=== PATIENT | male | born 1980 | race African-American/Black ===

== ENCOUNTER 2016-10-17 21:02 | Emergency (ER) | payer MEDICAID ==
[~2016-10-17] VITALS: Ht 180.3 cm; Wt 85.3 kg
[2016-10-18 01:31] VITALS: BP 108/79
[2016-10-18] MEDS ORDERED: IBUPROFEN 600 MG TAB PO ONE (01:45)
== END 2016-10-18 01:45 | disposition home or self-care (01) ==
LOC: ER 21:02
DX: S86.911A Strain of unspecified muscle(s) and tendon(s) at lower leg level, right leg, initial encounter (principal); F17.210 Nicotine dependence, cigarettes, uncomplicated; F15.10 Other stimulant abuse, uncomplicated; X50.0XXA Overexertion from strenuous movement or load, initial encounter; Y93.89 Activity, other specified; Y99.8 Other external cause status; Y92.89 Other specified places as the place of occurrence of the external cause
CPT/HCPCS: 29505; 73562

== ENCOUNTER 2017-01-16 00:11 | Emergency (ER) | payer MEDICAID ==
[~2017-01-16] VITALS: Ht 180.3 cm; Wt 74.8 kg
[2017-01-16 01:34] LABS: Basophils # (auto) 0.1 uL; Basophils % (auto) 0.8 % (0.0-2.0); CONDITION Y; DEFINITIVE SEE PRINTOUT; Eosinophils # (auto) 0.1 uL; Eosinophils % (auto) 0.8 % (0.0-7.0); Hematocrit 47.1 % (41.0-53.0); Hemoglobin 15.4 g/dL (13.5-17.5); Lymphocytes # (auto) 2.1 uL; Mean Corpuscular Hemoglobin 25.2 pg (28.0-32.0); Mean Corpuscular Hgb Conc. 32.8 g/dL (32.0-36.0); Mean Corpuscular Volume 76.9 fL (80.0-100.0); Mean Platelet Volume 8.1 fL (7.4-10.4); Monocytes # (auto) 0.7 uL; Monocytes % (auto) 7.2 % (0.0-12.0); Neutrophils # (auto) 7.3 uL; Neutrophils % (auto) 71.2 % (37.0-80.0); Platelet Count (auto) 335 10^3/uL (140-450); Red Cell Distribution Width 15.4 % (11.6-16.0); White Blood Cell 10.3 10^3/uL (4.4-10.8)
[2017-01-16 01:53] LABS: Albumin 4.2 g/dL (3.4-5.0); BUN/Creatinine Ratio 10.1; Calcium 8.8 mg/dL (8.5-10.1); Potassium 3.9 mmol/L (3.5-5.1)
[2017-01-16 02:02] LABS: Bilirubin, Total 0.5 mg/dL (0.2-1.0); Total Protein 7.5 g/dL (6.4-8.2)
[2017-01-16 06:17] VITALS: BP 126/75
[2017-01-16] MEDS ORDERED: KETOROLAC TROMETH 30 MG/ML 1ML VIAL IM ONE (06:30)
[2017-01-16] MEDS ORDERED: KETOROLAC TROMETH 30 MG/ML 1ML VIAL IV ONE (06:30)
== END 2017-01-16 07:09 | disposition home or self-care (01) ==
LOC: ER 00:13
DX: K08.89 Other specified disorders of teeth and supporting structures (principal); F17.210 Nicotine dependence, cigarettes, uncomplicated; F15.10 Other stimulant abuse, uncomplicated
CPT/HCPCS: 36415; 70360; 80053; 85025; 96372; 99285; J1885

== ENCOUNTER 2017-04-12 23:25 | Emergency (ER) | payer MEDICAID ==
[~2017-04-12] VITALS: Ht 180.3 cm; Wt 74.8 kg
[2017-04-13 02:44] VITALS: BP 112/82
== END 2017-04-13 02:47 | disposition home or self-care (01) ==
LOC: ER 23:34
DX: H10.9 Unspecified conjunctivitis (principal); F17.210 Nicotine dependence, cigarettes, uncomplicated; F15.10 Other stimulant abuse, uncomplicated; Z90.89 Acquired absence of other organs

== ENCOUNTER 2017-05-22 03:38 | Emergency (ER) | payer MEDICAID ==
[~2017-05-22] VITALS: Ht 180.3 cm; Wt 74.8 kg
[2017-05-22 04:00] VITALS: BP 125/73
== END 2017-05-22 05:45 | disposition left against medical advice (07) ==
LOC: ER 03:42
DX: M79.645 Pain in left finger(s) (principal); Z53.21 Procedure and treatment not carried out due to patient leaving prior to being seen by health care provider
CPT/HCPCS: 73140

== ENCOUNTER 2017-06-22 02:21 | Emergency (ER) | payer MEDICAID ==
[~2017-06-22] VITALS: Ht 180.3 cm; Wt 72.6 kg
[2017-06-22 02:46] VITALS: BP 124/76
[2017-06-22 03:15] LABS: Basophils # (auto) 0.1 uL; Eosinophils # (auto) 0.1 uL; Mean Corpuscular Volume 77.5 fL (80.0-100.0); Mean Platelet Volume 7.4 fL (6.9-10.8); Monocytes # (auto) 0.8 uL; Red Cell Distribution Width 14.1 % (11.8-14.3)
[2017-06-22 03:17] LABS: Eosinophils % (auto) 0.6 % (0.0-7.0); Hematocrit 40.6 % (41.0-53.0); Hemoglobin 13.6 g/dL (13.5-17.5); Lymphocytes # (auto) 1.8 uL; Lymphocytes % (auto) 16.3 % (10.0-50.0); Mean Corpuscular Hgb Conc. 33.6 g/dL (32.0-36.0); Monocytes % (auto) 7.4 % (0.0-12.0); Neutrophils # (auto) 8.3 uL; Neutrophils % (auto) 74.7 % (37.0-80.0); Nucleated Red Blood Cells % 0.1 %; Platelet Count (auto) 283 10^3/uL (140-450); White Blood Cell 11.1 10^3/uL (4.4-10.8)
[2017-06-22 03:44] LABS: Albumin 4.1 g/dL (3.4-5.0); BUN/Creatinine Ratio 16.5; Bilirubin, Total 0.4 mg/dL (0.2-1.0); Calcium 9.2 mg/dL (8.5-10.1); Potassium 3.8 mmol/L (3.5-5.1); Total Protein 7.2 g/dL (6.4-8.2)
== END 2017-06-22 08:05 | disposition left against medical advice (07) ==
LOC: ER 02:24
DX: R06.02 Shortness of breath (principal); F12.10 Cannabis abuse, uncomplicated; Z53.21 Procedure and treatment not carried out due to patient leaving prior to being seen by health care provider
CPT/HCPCS: 36415; 80053; 85025

== ENCOUNTER 2017-10-04 06:42 | Emergency (ER) | payer MEDICAID ==
[~2017-10-04] VITALS: Ht 180.3 cm; Wt 74.8 kg
[2017-10-04 07:29] VITALS: BP 108/73
== END 2017-10-04 07:54 | disposition home or self-care (01) ==
LOC: ER 06:42
DX: S30.0XXA Contusion of lower back and pelvis, initial encounter (principal); F17.210 Nicotine dependence, cigarettes, uncomplicated; W50.3XXA Accidental bite by another person, initial encounter; Y93.89 Activity, other specified; Y92.89 Other specified places as the place of occurrence of the external cause; Y99.8 Other external cause status

== ENCOUNTER 2018-08-11 02:05 | Emergency (ER) | payer MEDICAID ==
[~2018-08-11] VITALS: Ht 180.3 cm; Wt 77.1 kg
[2018-08-11 02:12] VITALS: BP 136/75
== END 2018-08-11 05:08 | disposition home or self-care (01) ==
LOC: ER 02:06
DX: S09.90XA Unspecified injury of head, initial encounter (principal); M62.830 Muscle spasm of back; F17.210 Nicotine dependence, cigarettes, uncomplicated; W22.8XXA Striking against or struck by other objects, initial encounter; Y93.89 Activity, other specified; Y92.89 Other specified places as the place of occurrence of the external cause; Y99.8 Other external cause status
CPT/HCPCS: 70450; 72125

== ENCOUNTER 2018-08-16 03:17 | Emergency (ER) | payer MEDICAID ==
[~2018-08-16] VITALS: Ht 180.3 cm; Wt 77.1 kg
[2018-08-16 04:08] VITALS: BP 121/75
[2018-08-16] MEDS ORDERED: METHOCARBAMOL 500 MG TAB PO ONE (06:45)
== END 2018-08-16 08:24 | disposition home or self-care (01) ==
LOC: ER 03:17
DX: S13.9XXA Sprain of joints and ligaments of unspecified parts of neck, initial encounter (principal); F17.210 Nicotine dependence, cigarettes, uncomplicated; F15.10 Other stimulant abuse, uncomplicated; V87.8XXA Person injured in other specified noncollision transport accidents involving motor vehicle (traffic), initial encounter; Y93.55 Activity, bike riding; Y92.488 Other paved roadways as the place of occurrence of the external cause; Y99.8 Other external cause status
CPT/HCPCS: 72125

== ENCOUNTER 2018-08-26 04:54 | Emergency (ER) | payer MEDICAID ==
[~2018-08-26] VITALS: Ht 180.3 cm; Wt 77.1 kg
[2018-08-26 06:30] VITALS: BP 120/62
== END 2018-08-26 06:45 | disposition home or self-care (01) ==
LOC: ER 04:54
DX: R51 Headache (principal); F17.210 Nicotine dependence, cigarettes, uncomplicated; F12.90 Cannabis use, unspecified, uncomplicated; F15.90 Other stimulant use, unspecified, uncomplicated
CPT/HCPCS: 70450

== ENCOUNTER 2018-09-11 05:30 | Emergency (ER) | payer MEDICAID ==
[~2018-09-11] VITALS: Ht 180.3 cm; Wt 77.1 kg
[2018-09-11 06:31] VITALS: BP 131/87
[2018-09-11] MEDS ORDERED: IBUPROFEN 600 MG TAB PO ONE (07:45)
== END 2018-09-11 07:52 | disposition home or self-care (01) ==
LOC: ER 05:30
DX: S81.832A Puncture wound without foreign body, left lower leg, initial encounter (principal); F17.210 Nicotine dependence, cigarettes, uncomplicated; F12.90 Cannabis use, unspecified, uncomplicated; F15.90 Other stimulant use, unspecified, uncomplicated; W20.8XXA Other cause of strike by thrown, projected or falling object, initial encounter; Y93.89 Activity, other specified; Y99.8 Other external cause status; Y92.89 Other specified places as the place of occurrence of the external cause

== ENCOUNTER 2018-09-13 07:42 | Emergency (ER) | payer MEDICAID ==
[~2018-09-13] VITALS: Ht 180.3 cm; Wt 77.1 kg
[2018-09-13 08:17] VITALS: BP 113/65
== END 2018-09-13 10:00 | disposition left against medical advice (07) ==
LOC: ER 07:48

== ENCOUNTER 2018-09-20 03:45 | Emergency (ER) | payer MEDICAID ==
[~2018-09-20] VITALS: Ht 167.6 cm; Wt 81.6 kg
[2018-09-20 07:44] VITALS: BP 115/83
== END 2018-09-20 09:43 | disposition home or self-care (01) ==
LOC: ER 03:45
DX: S80.922D Unspecified superficial injury of left lower leg, subsequent encounter (principal); F17.210 Nicotine dependence, cigarettes, uncomplicated; F12.10 Cannabis abuse, uncomplicated; F15.10 Other stimulant abuse, uncomplicated; X58.XXXD Exposure to other specified factors, subsequent encounter

== ENCOUNTER 2018-10-01 04:37 | Emergency (ER) | payer MEDICAID ==
[~2018-10-01] VITALS: Ht 180.3 cm; Wt 74.8 kg
[2018-10-01] MEDS ORDERED: methylPREDNISolone SOD SUCC 125 MG/2 ML VL IM ONE (05:30)
[2018-10-01] MEDS ORDERED: TETANUS-DIPTH-ACEL PERTUSSIS 0.5ML SYRG IM ONE (05:30)
[2018-10-01] MEDS ORDERED: cefTRIAXone SOD 1,000 MG VL IM ONE (05:30)
[2018-10-01 06:31] VITALS: BP 126/77
== END 2018-10-01 06:37 | disposition home or self-care (01) ==
LOC: ER 04:37
DX: S10.91XA Abrasion of unspecified part of neck, initial encounter (principal); T88.1XXA Other complications following immunization, not elsewhere classified, initial encounter; F17.210 Nicotine dependence, cigarettes, uncomplicated; F12.10 Cannabis abuse, uncomplicated; F15.10 Other stimulant abuse, uncomplicated; Y04.2XXA Assault by strike against or bumped into by another person, initial encounter; Y93.89 Activity, other specified; Y92.830 Public park as the place of occurrence of the external cause; Y99.8 Other external cause status
CPT/HCPCS: 90471; 90715; 96372; 99283; J0696; J2930

== ENCOUNTER 2018-11-01 02:29 | Emergency (ER) | payer MEDICAID ==
[~2018-11-01] VITALS: Ht 180.3 cm; Wt 49.9 kg
[2018-11-01 06:50] VITALS: BP 122/67
== END 2018-11-01 07:11 | disposition home or self-care (01) ==
LOC: ER 02:29
DX: S20.479A Other superficial bite of unspecified back wall of thorax, initial encounter (principal); F17.210 Nicotine dependence, cigarettes, uncomplicated; F12.90 Cannabis use, unspecified, uncomplicated; F15.90 Other stimulant use, unspecified, uncomplicated; W50.3XXA Accidental bite by another person, initial encounter; Y93.89 Activity, other specified; Y99.8 Other external cause status; Y92.89 Other specified places as the place of occurrence of the external cause

== ENCOUNTER 2018-12-21 05:37 | Emergency (ER) | payer MEDICAID ==
[~2018-12-21] VITALS: Ht 180.3 cm; Wt 79.4 kg
[2018-12-21 06:48] VITALS: BP 130/72
== END 2018-12-21 07:42 | disposition home or self-care (01) ==
LOC: ER 05:37
DX: R68.84 Jaw pain (principal); S01.81XD Laceration without foreign body of other part of head, subsequent encounter; F17.210 Nicotine dependence, cigarettes, uncomplicated; F12.10 Cannabis abuse, uncomplicated; F15.10 Other stimulant abuse, uncomplicated; X58.XXXD Exposure to other specified factors, subsequent encounter
CPT/HCPCS: 70110

== ENCOUNTER 2018-12-23 00:41 | Emergency (ER) | payer MEDICAID ==
[~2018-12-23] VITALS: Ht 180.3 cm; Wt 79.4 kg
[2018-12-23 00:49] VITALS: BP 127/77
== END 2018-12-23 02:53 | disposition left against medical advice (07) ==
LOC: ER 00:41
DX: S01.419D Laceration without foreign body of unspecified cheek and temporomandibular area, subsequent encounter (principal); Z53.21 Procedure and treatment not carried out due to patient leaving prior to being seen by health care provider; X58.XXXD Exposure to other specified factors, subsequent encounter

== ENCOUNTER 2019-01-05 00:24 | Emergency (ER) | payer MEDICAID ==
[~2019-01-05] VITALS: Ht 180.3 cm; Wt 77.1 kg
[2019-01-05 04:52] VITALS: BP 119/83
== END 2019-01-05 06:49 | disposition home or self-care (01) ==
LOC: ER 00:26
DX: L03.221 Cellulitis of neck (principal); F17.210 Nicotine dependence, cigarettes, uncomplicated; F12.10 Cannabis abuse, uncomplicated; F15.10 Other stimulant abuse, uncomplicated

== ENCOUNTER 2019-01-23 02:23 | Emergency (ER) | payer MEDICAID ==
[~2019-01-23] VITALS: Ht 180.3 cm; Wt 77.1 kg
[2019-01-23 02:37] VITALS: BP 114/78
[2019-01-23] MEDS ORDERED: BACLOFEN 10 MG TAB PO ONE (04:15)
[2019-01-23] MEDS ORDERED: ACETAMINOPHEN/CODEINE#3 (300/30mg) TAB PO ONE (04:15)
== END 2019-01-23 05:13 | disposition home or self-care (01) ==
LOC: ER 02:26
DX: S29.012A Strain of muscle and tendon of back wall of thorax, initial encounter (principal); M62.830 Muscle spasm of back; F17.210 Nicotine dependence, cigarettes, uncomplicated; F12.10 Cannabis abuse, uncomplicated; F15.10 Other stimulant abuse, uncomplicated; X50.0XXA Overexertion from strenuous movement or load, initial encounter; Y93.89 Activity, other specified; Y92.89 Other specified places as the place of occurrence of the external cause; Y99.8 Other external cause status

== ENCOUNTER 2019-02-17 04:50 | Emergency (ER) | payer MEDICAID ==
[~2019-02-17] VITALS: Ht 180.3 cm; Wt 77.1 kg
[2019-02-17 04:59] VITALS: BP 118/68
== END 2019-02-17 07:10 | disposition home or self-care (01) ==
LOC: ER 04:50
DX: H10.31 Unspecified acute conjunctivitis, right eye (principal); F17.210 Nicotine dependence, cigarettes, uncomplicated; F12.90 Cannabis use, unspecified, uncomplicated; F15.90 Other stimulant use, unspecified, uncomplicated

== ENCOUNTER 2019-06-23 01:16 | Emergency (ER) | payer MEDICAID ==
[~2019-06-23] VITALS: Ht 180.3 cm; Wt 72.6 kg
[2019-06-23 01:49] VITALS: BP 113/81
== END 2019-06-23 02:17 | disposition home or self-care (01) ==
LOC: ER 01:18
DX: J06.9 Acute upper respiratory infection, unspecified (principal); F17.210 Nicotine dependence, cigarettes, uncomplicated; F12.10 Cannabis abuse, uncomplicated; F15.10 Other stimulant abuse, uncomplicated
CPT/HCPCS: 71045

== ENCOUNTER → 2020-10-21 | Emergency (ER) | payer MEDICAID ==
[~2020-10-21] VITALS: Ht 180.3 cm; Wt 81.6 kg
[2020-10-21 23:24] VITALS: BP 167/81
== END | disposition left against medical advice (07) ==
LOC: ER 23:22
DX: R51.9 Headache, unspecified (principal); Z53.21 Procedure and treatment not carried out due to patient leaving prior to being seen by health care provider
CPT/HCPCS: 70450

== ENCOUNTER 2020-12-01 09:51 | Emergency (ER) | payer MEDICAID ==
[~2020-12-01] VITALS: Ht 180.3 cm; Wt 77.1 kg
[2020-12-01] MEDS ORDERED: cefTRIAXone SOD 1,000 MG VL IM ONE (10:45)
[2020-12-01 10:55] VITALS: BP 112/49
== END 2020-12-01 11:38 | disposition home or self-care (01) ==
LOC: ER 09:51
DX: L01.02 Bockhart's impetigo (principal); F17.210 Nicotine dependence, cigarettes, uncomplicated; F12.10 Cannabis abuse, uncomplicated; F15.10 Other stimulant abuse, uncomplicated
CPT/HCPCS: 96372; 99283; J0696

== ENCOUNTER 2020-12-08 21:12 | Emergency (ER) | payer MEDICAID ==
[~2020-12-08] VITALS: Ht 180.3 cm; Wt 74.8 kg
[2020-12-09 00:36] VITALS: BP 142/99
[2020-12-09] MEDS ORDERED: KETOROLAC TROMETH 60MG/2ML VIAL IM ONE (01:00)
== END 2020-12-09 01:34 | disposition home or self-care (01) ==
LOC: ER 21:12
DX: S62.614A Displaced fracture of proximal phalanx of right ring finger, initial encounter for closed fracture (principal); F17.210 Nicotine dependence, cigarettes, uncomplicated; Z90.89 Acquired absence of other organs; W22.8XXA Striking against or struck by other objects, initial encounter; Y93.89 Activity, other specified; Y92.89 Other specified places as the place of occurrence of the external cause; Y99.8 Other external cause status
CPT/HCPCS: 73130; 96372; 99283; J1885

== ENCOUNTER 2021-02-14 03:23 | Emergency (ER) | payer MEDICAID ==
[~2021-02-14] VITALS: Ht 180.3 cm; Wt 72.6 kg
[2021-02-14 06:47] VITALS: BP 113/68
== END 2021-02-14 06:53 | disposition home or self-care (01) ==
LOC: ER 03:23
DX: L01.02 Bockhart's impetigo (principal); L02.91 Cutaneous abscess, unspecified; F17.210 Nicotine dependence, cigarettes, uncomplicated; Z76.0 Encounter for issue of repeat prescription

== ENCOUNTER 2021-02-21 00:49 | Emergency (ER) | payer MEDICAID ==
[~2021-02-21] VITALS: Ht 180.3 cm; Wt 77.1 kg
[2021-02-21 00:50] VITALS: BP 108/68
[2021-02-21] MEDS ORDERED: ACETAMINOPHEN 500 MG TAB PO ONE (04:00)
[2021-02-21] MEDS ORDERED: IBUPROFEN 800 MG TAB PO ONE (04:00)
== END 2021-02-21 04:40 | disposition home or self-care (01) ==
LOC: ER 00:54
DX: S93.601A Unspecified sprain of right foot, initial encounter (principal); F17.210 Nicotine dependence, cigarettes, uncomplicated; Z90.89 Acquired absence of other organs; Y04.2XXA Assault by strike against or bumped into by another person, initial encounter; Y93.89 Activity, other specified; Y92.89 Other specified places as the place of occurrence of the external cause; Y99.8 Other external cause status
CPT/HCPCS: 73620

== ENCOUNTER 2021-03-02 00:41 | Emergency (ER) | payer MEDICAID ==
[~2021-03-02] VITALS: Ht 180.3 cm; Wt 77.1 kg
[2021-03-02 07:07] VITALS: BP 119/84
== END 2021-03-02 07:10 | disposition home or self-care (01) ==
LOC: ER 00:41
DX: S93.601A Unspecified sprain of right foot, initial encounter (principal); F17.210 Nicotine dependence, cigarettes, uncomplicated; Z76.0 Encounter for issue of repeat prescription; Z90.89 Acquired absence of other organs; X58.XXXA Exposure to other specified factors, initial encounter; Y93.89 Activity, other specified; Y92.89 Other specified places as the place of occurrence of the external cause; Y99.8 Other external cause status

== ENCOUNTER → 2021-03-08 | Emergency (ER) | payer MEDICAID ==
[~2021-03-08] VITALS: Ht 180.3 cm; Wt 72.6 kg
[2021-03-08 03:39] VITALS: BP 129/85
[2021-03-08 04:12] LABS: Basophils # (auto) 0.1 10 ^3/uL (0-0.2); Eosinophils # (auto) 0.1 10 ^3/uL (0-0.8); Lymphocytes # (auto) 2.6 10 ^3/uL (0.4-5.4); Neutrophils # (auto) 4.6 10 ^3/uL (1.6-8.6); White Blood Cell 7.8 10^3/uL (4.4-10.8)
[2021-03-08 04:14] LABS: Basophils % (auto) 1.3 % (0.0-2.0); Eosinophils % (auto) 1.3 % (0.0-7.0); Hematocrit 37.5 % (41.0-53.0); Hemoglobin 12.6 g/dL (13.5-17.5); Lymphocytes % (auto) 33.6 % (10.0-50.0); Mean Corpuscular Hemoglobin 25.6 pg (28.0-32.0); Mean Corpuscular Hgb Conc. 33.7 g/dL (32.0-36.0); Mean Corpuscular Volume 75.9 fL (80.0-100.0); Monocytes # (auto) 0.4 10 ^3/uL (0-1.3); Monocytes % (auto) 5.1 % (0.0-12.0); Neutrophils % (auto) 58.7 % (37.0-80.0); Red Blood Cells 4.95 10^6/uL (4.5-5.90); Red Cell Distribution Width 14.6 % (11.8-14.3)
[2021-03-08 04:33] LABS: Alanine Aminotransferase 25 U/L (16-61); Albumin 3.9 g/dL (3.4-5.0); Anion Gap 6 (5-15); Aspartate Aminotransferase 22 U/L (15-37); BUN/Creatinine Ratio 9.1; Blood Urea Nitrogen 11 mg/dL (7-18); Calcium 8.5 mg/dL (8.5-10.1); Carbon Dioxide 28 mmol/L (21-32); Chloride 105 mmol/L (98-107); GFR African American 86 mL/min; GFR Non-African American 71 mL/min; Glucose 99 mg/dL (74-106); Magnesium 2.3 mg/dL (1.6-2.6); Potassium 3.3 mmol/L (3.5-5.1); Sodium 139 mmol/L (136-145)
[2021-03-08 04:37] LABS: Alkaline Phosphatase 79 U/L (45-117); Bilirubin, Total 0.4 mg/dL (0.2-1.0); Total Protein 6.9 g/dL (6.4-8.2)
== END | disposition home or self-care (01) ==
LOC: ER 03:05
DX: S93.601A Unspecified sprain of right foot, initial encounter (principal); R07.89 Other chest pain; F41.9 Anxiety disorder, unspecified; F17.210 Nicotine dependence, cigarettes, uncomplicated; F12.10 Cannabis abuse, uncomplicated; F15.10 Other stimulant abuse, uncomplicated; X58.XXXA Exposure to other specified factors, initial encounter; Y93.89 Activity, other specified; Y92.89 Other specified places as the place of occurrence of the external cause; Y99.8 Other external cause status
CPT/HCPCS: 36415; 73630; 80053; 83735; 84484; 85025; 93005

== ENCOUNTER 2021-03-23 21:08 | Emergency (ER) | payer MEDICAID ==
[~2021-03-23] VITALS: Ht 180.3 cm; Wt 81.2 kg
[2021-03-24] MEDS ORDERED: IBUPROFEN 800 MG TAB PO ONE (07:15)
[2021-03-24 07:30] VITALS: BP 118/83
== END 2021-03-24 07:34 | disposition home or self-care (01) ==
LOC: ER 21:08
DX: S60.041A Contusion of right ring finger without damage to nail, initial encounter (principal); M19.041 Primary osteoarthritis, right hand; F17.210 Nicotine dependence, cigarettes, uncomplicated; Z90.89 Acquired absence of other organs; W22.8XXA Striking against or struck by other objects, initial encounter; Y93.89 Activity, other specified; Y92.89 Other specified places as the place of occurrence of the external cause; Y99.8 Other external cause status
CPT/HCPCS: 73120

== ENCOUNTER 2021-03-26 00:30 | Emergency (ER) | payer MEDICAID ==
[~2021-03-26] VITALS: Ht 180.3 cm; Wt 75.7 kg
[2021-03-26 02:16] LABS: Basophils # (auto) 0.1 10 ^3/uL (0-0.2); Eosinophils # (auto) 0 10 ^3/uL (0-0.8); Eosinophils % (auto) 0.4 % (0.0-7.0); Monocytes # (auto) 0.5 10 ^3/uL (0-1.3); Neutrophils # (auto) 5.7 10 ^3/uL (1.6-8.6); Nucleated Red Blood Cells % 0.1 %; White Blood Cell 8.4 10^3/uL (4.4-10.8)
[2021-03-26 02:17] LABS: Hematocrit 38.3 % (41.0-53.0); Hemoglobin 12.9 g/dL (13.5-17.5); Lymphocytes # (auto) 2.1 10 ^3/uL (0.4-5.4); Lymphocytes % (auto) 25.4 % (10.0-50.0); Mean Corpuscular Hemoglobin 25.5 pg (28.0-32.0); Mean Corpuscular Hgb Conc. 33.6 g/dL (32.0-36.0); Mean Corpuscular Volume 75.7 fL (80.0-100.0); Monocytes % (auto) 5.6 % (0.0-12.0); Neutrophils % (auto) 67.6 % (37.0-80.0); Red Blood Cells 5.05 10^6/uL (4.5-5.90); Red Cell Distribution Width 14.4 % (11.8-14.3)
[2021-03-26 02:33] LABS: INR 1.1 (0.9-1.15); Partial Thromboplastin Time 24.3 sec (23.6-33.0)
[2021-03-26 02:34] LABS: Alanine Aminotransferase 21 U/L (16-61); Albumin 3.9 g/dL (3.4-5.0); Anion Gap 6 (5-15); Aspartate Aminotransferase 23 U/L (15-37); BUN/Creatinine Ratio 13.7; Blood Urea Nitrogen 18 mg/dL (7-18); Calcium 8.8 mg/dL (8.5-10.1); Carbon Dioxide 25 mmol/L (21-32); Chloride 110 mmol/L (98-107); GFR African American 78 mL/min; GFR Non-African American 65 mL/min; Glucose 92 mg/dL (74-106); Magnesium 2.5 mg/dL (1.6-2.6); Potassium 3.9 mmol/L (3.5-5.1); Sodium 141 mmol/L (136-145)
[2021-03-26 02:39] LABS: Alkaline Phosphatase 70 U/L (45-117); Bilirubin, Total 0.8 mg/dL (0.2-1.0); Total Protein 7.3 g/dL (6.4-8.2)
[2021-03-26 04:00] VITALS: BP 128/83
== END 2021-03-26 06:48 | disposition home or self-care (01) ==
LOC: ER 00:31
DX: R07.89 Other chest pain (principal); F17.210 Nicotine dependence, cigarettes, uncomplicated; F12.10 Cannabis abuse, uncomplicated; F15.10 Other stimulant abuse, uncomplicated; Z59.0 Homelessness
CPT/HCPCS: 36415; 71045; 80053; 83735; 83880; 84443; 84484; 85025; 85610; 85730; 93005

== ENCOUNTER 2021-03-27 22:48 | Emergency (ER) | payer MEDICAID ==
[~2021-03-27] VITALS: Ht 180.3 cm; Wt 77.1 kg
[2021-03-28 05:17] VITALS: BP 115/69
== END 2021-03-28 05:36 | disposition home or self-care (01) ==
LOC: ER 22:48
DX: S60.041A Contusion of right ring finger without damage to nail, initial encounter (principal); M19.041 Primary osteoarthritis, right hand; F17.210 Nicotine dependence, cigarettes, uncomplicated; F12.10 Cannabis abuse, uncomplicated; F15.10 Other stimulant abuse, uncomplicated; Z90.89 Acquired absence of other organs; W23.0XXA Caught, crushed, jammed, or pinched between moving objects, initial encounter; Y93.89 Activity, other specified; Y92.89 Other specified places as the place of occurrence of the external cause; Y99.8 Other external cause status

== ENCOUNTER 2021-05-01 22:28 | Emergency (ER) | payer MEDICAID ==
[~2021-05-01] VITALS: Ht 180.3 cm; Wt 77.1 kg
[2021-05-01 23:37] LABS: Basophils # (auto) 0.1 10 ^3/uL (0-0.2); Basophils % (auto) 1.1 % (0.0-2.0); Eosinophils # (auto) 0.1 10 ^3/uL (0-0.8); Hemoglobin 13.9 g/dL (13.5-17.5); Lymphocytes # (auto) 2.6 10 ^3/uL (0.4-5.4); Mean Corpuscular Hgb Conc. 33.7 g/dL (32.0-36.0); Monocytes # (auto) 0.6 10 ^3/uL (0-1.3)
[2021-05-01 23:40] LABS: Eosinophils % (auto) 1.1 % (0.0-7.0); Hematocrit 41.3 % (41.0-53.0); Lymphocytes % (auto) 27.8 % (10.0-50.0); Mean Corpuscular Hemoglobin 25.7 pg (28.0-32.0); Mean Corpuscular Volume 76.3 fL (80.0-100.0); Monocytes % (auto) 5.9 % (0.0-12.0); Neutrophils % (auto) 64.1 % (37.0-80.0); Nucleated Red Blood Cells % 0.2 %; Red Blood Cells 5.41 10^6/uL (4.5-5.90); Red Cell Distribution Width 14.2 % (11.8-14.3); White Blood Cell 9.4 10^3/uL (4.4-10.8)
[2021-05-01 23:54] LABS: Albumin 3.9 g/dL (3.4-5.0); Anion Gap 4 (5-15); Blood Urea Nitrogen 20 mg/dL (7-18); Calcium 9.1 mg/dL (8.5-10.1); Carbon Dioxide 29 mmol/L (21-32); Chloride 104 mmol/L (98-107); Glucose 116 mg/dL (74-106); Magnesium 2.4 mg/dL (1.6-2.6); Potassium 5.1 mmol/L (3.5-5.1); Sodium 137 mmol/L (136-145)
[2021-05-01 23:56] LABS: Alanine Aminotransferase 22 U/L (16-61); Aspartate Aminotransferase 23 U/L (15-37); BUN/Creatinine Ratio 13.2; GFR African American 66 mL/min; GFR Non-African American 55 mL/min
[2021-05-02 00:01] LABS: Alkaline Phosphatase 83 U/L (45-117); Bilirubin, Total 0.3 mg/dL (0.2-1.0); Total Protein 7.3 g/dL (6.4-8.2)
[2021-05-02 06:57] VITALS: BP 103/79
== END 2021-05-02 06:59 | disposition home or self-care (01) ==
LOC: ER 22:33
DX: R07.89 Other chest pain (principal); F17.210 Nicotine dependence, cigarettes, uncomplicated; F12.10 Cannabis abuse, uncomplicated; Z59.00 Homelessness unspecified
CPT/HCPCS: 36415; 71045; 80053; 83735; 83880; 84484; 85025; 93005

== ENCOUNTER 2021-05-25 05:58 | Emergency (ER) | payer MEDICAID ==
[~2021-05-25] VITALS: Ht 180.3 cm; Wt 77.1 kg
[2021-05-25 07:26] VITALS: BP 114/68
== END 2021-05-25 07:36 | disposition home or self-care (01) ==
LOC: ER 05:58
DX: R05.9 Cough, unspecified (principal); F17.210 Nicotine dependence, cigarettes, uncomplicated; F12.10 Cannabis abuse, uncomplicated; Z59.00 Homelessness unspecified

== ENCOUNTER 2021-06-12 00:19 | Emergency (ER) | payer MEDICAID ==
[~2021-06-12] VITALS: Ht 180.3 cm; Wt 77.1 kg
[2021-06-12 04:31] VITALS: BP 113/71
== END 2021-06-12 05:31 | disposition home or self-care (01) ==
LOC: ER 00:23
DX: L02.211 Cutaneous abscess of abdominal wall (principal); F17.210 Nicotine dependence, cigarettes, uncomplicated; Z59.00 Homelessness unspecified; Z90.89 Acquired absence of other organs

== ENCOUNTER 2021-07-04 00:44 | Emergency (ER) | payer MEDICAID ==
[~2021-07-04] VITALS: Ht 180.3 cm; Wt 77.1 kg
[2021-07-04 02:26] LABS: Basophils # (auto) 0.1 10 ^3/uL (0-0.2); Eosinophils # (auto) 0.1 10 ^3/uL (0-0.8); Eosinophils % (auto) 1.5 % (0.0-7.0); Hematocrit 41.3 % (41.0-53.0); Hemoglobin 13.6 g/dL (13.5-17.5); Lymphocytes # (auto) 2.8 10 ^3/uL (0.4-5.4); Lymphocytes % (auto) 34.7 % (10.0-50.0); Mean Corpuscular Hgb Conc. 32.9 g/dL (32.0-36.0); Monocytes # (auto) 0.4 10 ^3/uL (0-1.3); Monocytes % (auto) 5.2 % (0.0-12.0); Neutrophils # (auto) 4.7 10 ^3/uL (1.6-8.6); Neutrophils % (auto) 57.6 % (37.0-80.0); Nucleated Red Blood Cells % 0.1 %; Red Blood Cells 5.44 10^6/uL (4.5-5.90); White Blood Cell 8.1 10^3/uL (4.4-10.8)
[2021-07-04 03:00] VITALS: BP 124/73
[2021-07-04 03:12] LABS: Calcium 8.7 mg/dL (8.5-10.1)
[2021-07-04 03:20] LABS: Albumin 3.8 g/dL (3.4-5.0); BUN/Creatinine Ratio 15.7; Bilirubin, Total 0.2 mg/dL (0.2-1.0)
== END 2021-07-04 09:50 | disposition left against medical advice (07) ==
LOC: ER 00:51
DX: R07.89 Other chest pain (principal); R51.9 Headache, unspecified; Z59.00 Homelessness unspecified; Z53.21 Procedure and treatment not carried out due to patient leaving prior to being seen by health care provider
CPT/HCPCS: 36415; 71045; 80053; 84484; 85025; 93005

== ENCOUNTER 2021-08-05 04:55 | Emergency (ER) | payer MEDICAID ==
[~2021-08-05] VITALS: Ht 180.3 cm; Wt 77.1 kg
[2021-08-05 04:55] VITALS: BP 123/79
== END 2021-08-05 09:26 | disposition left against medical advice (07) ==
LOC: ER 04:55
DX: S67.22XA Crushing injury of left hand, initial encounter (principal); Z53.21 Procedure and treatment not carried out due to patient leaving prior to being seen by health care provider; X58.XXXA Exposure to other specified factors, initial encounter; Y93.89 Activity, other specified; Y92.89 Other specified places as the place of occurrence of the external cause; Y99.8 Other external cause status
CPT/HCPCS: 73130

== ENCOUNTER 2021-08-10 04:38 | Emergency (ER) | payer MEDICAID ==
[~2021-08-10] VITALS: Ht 180.3 cm; Wt 77.1 kg
[2021-08-10 06:49] VITALS: BP 114/74
[2021-08-10] MEDS ORDERED: CEPH500T PO (06:52)
[2021-08-10] MEDS ORDERED: ACET-1080 PO (06:52)
[2021-08-10] MEDS ORDERED: ACETAMINOPHEN 325 MG TAB PO ONE (07:00)
[2021-08-10] MEDS ORDERED: IBUPROFEN 800 MG TAB PO ONE (07:00)
== END 2021-08-10 07:10 | disposition home or self-care (01) ==
LOC: ER 04:38
DX: S60.222A Contusion of left hand, initial encounter (principal); S61.532D Puncture wound without foreign body of left wrist, subsequent encounter; F17.210 Nicotine dependence, cigarettes, uncomplicated; Z59.00 Homelessness unspecified; Z90.89 Acquired absence of other organs; Z79.899 Other long term (current) drug therapy; W23.0XXA Caught, crushed, jammed, or pinched between moving objects, initial encounter; Y93.89 Activity, other specified; Y92.89 Other specified places as the place of occurrence of the external cause; Y99.8 Other external cause status

== ENCOUNTER 2021-08-10 18:18 | Inpatient (IN) | payer MEDICAID ==
[~2021-08-10] VITALS: Ht 180.3 cm; Wt 72.2 kg
[~2021-08-10 18:18] MED LIST: ACET-1080 PO; CEPH500T PO
[2021-08-10] MEDS ORDERED: AMMONIA 0.33 ML INHALANT IN ONE (18:24)
[2021-08-10] MEDS ORDERED: SODIUM CHLORIDE 0.9% 1,000 ML IVB ONE (19:45)
[2021-08-10 21:11] LABS: Hemoglobin 12.3 g/dL (13.5-17.5); Monocytes # (auto) 0.6 10 ^3/uL (0-1.3)
[2021-08-10 21:14] LABS: Basophils # (auto) 0 10 ^3/uL (0-0.2); Basophils % (auto) 0.8 % (0.0-2.0); Eosinophils # (auto) 0 10 ^3/uL (0-0.8); Eosinophils % (auto) 0.3 % (0.0-7.0); Hematocrit 36.8 % (41.0-53.0); Lymphocytes # (auto) 0.5 10 ^3/uL (0.4-5.4); Lymphocytes % (auto) 8.6 % (10.0-50.0); Mean Corpuscular Hemoglobin 25.2 pg (28.0-32.0); Mean Corpuscular Hgb Conc. 33.4 g/dL (32.0-36.0); Mean Corpuscular Volume 75.3 fL (80.0-100.0); Monocytes % (auto) 11.5 % (0.0-12.0); Neutrophils # (auto) 4.4 10 ^3/uL (1.6-8.6); Neutrophils % (auto) 78.8 % (37.0-80.0); Red Blood Cells 4.89 10^6/uL (4.5-5.90); Red Cell Distribution Width 14.2 % (11.8-14.3); White Blood Cell 5.6 10^3/uL (4.4-10.8)
[2021-08-10 21:28] LABS: Potassium 4.3 mmol/L (3.5-5.1)
[2021-08-10 21:35] LABS: Albumin 3.6 g/dL (3.4-5.0); BUN/Creatinine Ratio 10.9; Bilirubin, Total 0.3 mg/dL (0.2-1.0); Calcium 8.1 mg/dL (8.5-10.1); Total Protein 6.7 g/dL (6.4-8.2)
[2021-08-10] MEDS: BUDESONIDE (INHALATION) 180 MCG IH IN SCH (22:25)
[2021-08-11] MEDS ORDERED: AZITHROMYCIN 500MG/ 250ML 250 ML IV ONE (01:00)
[2021-08-11] MEDS ORDERED: cefTRIAXone 1GM/50ML D5W 50 ML IV ONE (01:00)
[2021-08-11] MEDS ORDERED: DexAMETHasone SOD PHOS 10MG/1ML VIAL INJ IV ONE (01:00)
[2021-08-11] MEDS ORDERED: ACETAMINOPHEN 500 MG TAB PO PRN (01:45)
[2021-08-11] MEDS ORDERED: ALBUTEROL SULF HFA 90MCG INH 200DOSE IN PRN (01:45)
[2021-08-11] MEDS: SODIUM CHLORIDE 0.9% 1,000 ML IV SCH ×2 (01:45→17:31)
[2021-08-11] MEDS ORDERED: ONDANSETRON HCL 4 MG/2 ML VIAL IV PRN (01:45)
[2021-08-11] MEDS ORDERED: DOCUSATE SOD 100 MG CAP PO PRN (01:45)
[2021-08-11] MEDS ORDERED: HYDROcodone-ACET 5/325MG TAB PO PRN (01:45)
[2021-08-11] MEDS ORDERED: NITROGLYCERIN 0.4 MG SL TAB SL PRN (02:15)
[2021-08-11] MEDS ORDERED: MORPHINE SULFATE INJECTION 2 MG/ML SYRG IV PRN (02:15)
[2021-08-11 04:00] VITALS: BP 122/71
[2021-08-11 09:00] VITALS: BP 128/62
[2021-08-11 09:51] LABS: Basophils # (auto) 0 10 ^3/uL (0-0.2); Eosinophils # (auto) 0 10 ^3/uL (0-0.8); Mean Corpuscular Volume 75.4 fL (80.0-100.0); Monocytes # (auto) 0.2 10 ^3/uL (0-1.3)
[2021-08-11 09:53] LABS: Basophils % (auto) 0.4 % (0.0-2.0); Hematocrit 39.4 % (41.0-53.0); Hemoglobin 13.2 g/dL (13.5-17.5); Lymphocytes # (auto) 0.6 10 ^3/uL (0.4-5.4); Lymphocytes % (auto) 10.8 % (10.0-50.0); Mean Corpuscular Hemoglobin 25.2 pg (28.0-32.0); Mean Corpuscular Hgb Conc. 33.5 g/dL (32.0-36.0); Monocytes % (auto) 3.9 % (0.0-12.0); Neutrophils # (auto) 4.6 10 ^3/uL (1.6-8.6); Neutrophils % (auto) 84.9 % (37.0-80.0); Nucleated Red Blood Cells % 0.1 %; Red Blood Cells 5.23 10^6/uL (4.5-5.90); Red Cell Distribution Width 14.1 % (11.8-14.3); White Blood Cell 5.5 10^3/uL (4.4-10.8)
[2021-08-11] MEDS: BUDESONIDE (INHALATION) 180 MCG IH IN SCH (10:00)
[2021-08-11 10:05] LABS: Albumin 3.6 g/dL (3.4-5.0); Calcium 8.6 mg/dL (8.5-10.1); Potassium 4.9 mmol/L (3.5-5.1)
[2021-08-11] MEDS: FAMOTIDINE (10MG/ML) 2ML VL IV SCH ×2 (10:08→22:03)
[2021-08-11 10:09] LABS: BUN/Creatinine Ratio 10.6; Bilirubin, Total 0.2 mg/dL (0.2-1.0); Total Protein 6.4 g/dL (6.4-8.2)
[2021-08-11] MEDS: ZINC SULFATE 220mg CAP or TAB PO SCH (10:09)
[2021-08-11] MEDS: CHOLECALCIFEROL (VITD3) 2,000 UNIT CAP/TAB PO SCH (10:09)
[2021-08-11] MEDS: ASCORBIC ACID 1,000 MG TAB PO SCH (10:09)
[2021-08-11] MEDS: ENOXAPARIN SOD 40 MG/0.4 ML SYRINGE SC SCH (10:09)
[2021-08-11] MEDS: MULTIPLE VITAMIN TAB PO SCH (10:09)
[2021-08-11] MEDS: DexAMETHasone SOD PHOS 10MG/1ML VIAL INJ IV SCH (10:09)
[2021-08-11 13:00] VITALS: BP 119/86
[2021-08-11 17:00] VITALS: BP 140/87
[2021-08-11 22:00] VITALS: BP 115/53
[2021-08-12 05:00] VITALS: BP 108/77
[2021-08-12 07:06] LABS: Basophils # (auto) 0 10 ^3/uL (0-0.2); Eosinophils # (auto) 0 10 ^3/uL (0-0.8); Hemoglobin 13.3 g/dL (13.5-17.5); Lymphocytes # (auto) 1.9 10 ^3/uL (0.4-5.4); Neutrophils # (auto) 2.3 10 ^3/uL (1.6-8.6); White Blood Cell 4.7 10^3/uL (4.4-10.8)
[2021-08-12 07:07] LABS: Basophils % (auto) 0.5 % (0.0-2.0); Eosinophils % (auto) 0.9 % (0.0-7.0); Hematocrit 39.1 % (41.0-53.0); Lymphocytes % (auto) 40.6 % (10.0-50.0); Mean Corpuscular Hemoglobin 25.3 pg (28.0-32.0); Mean Corpuscular Volume 74.3 fL (80.0-100.0); Monocytes # (auto) 0.4 10 ^3/uL (0-1.3); Monocytes % (auto) 8.6 % (0.0-12.0); Neutrophils % (auto) 49.4 % (37.0-80.0); Nucleated Red Blood Cells % 0.3 %; Red Blood Cells 5.26 10^6/uL (4.5-5.90); Red Cell Distribution Width 14.2 % (11.8-14.3)
[2021-08-12 07:20] LABS: Potassium 3.8 mmol/L (3.5-5.1)
[2021-08-12 07:27] LABS: Albumin 3.4 g/dL (3.4-5.0); BUN/Creatinine Ratio 15.7; Bilirubin, Total 0.1 mg/dL (0.2-1.0); Calcium 8.4 mg/dL (8.5-10.1); Total Protein 6.4 g/dL (6.4-8.2)
[2021-08-12] MEDS: BUDESONIDE (INHALATION) 180 MCG IH IN SCH (08:08)
[2021-08-12 08:42] VITALS: BP 118/85
[2021-08-12] MEDS: FAMOTIDINE (10MG/ML) 2ML VL IV SCH (09:58)
[2021-08-12] MEDS: DexAMETHasone SOD PHOS 10MG/1ML VIAL INJ IV SCH (09:58)
[2021-08-12] MEDS: ENOXAPARIN SOD 40 MG/0.4 ML SYRINGE SC SCH (09:59)
[2021-08-12] MEDS: MULTIPLE VITAMIN TAB PO SCH (09:59)
[2021-08-12] MEDS: ZINC SULFATE 220mg CAP or TAB PO SCH (09:59)
[2021-08-12] MEDS: CHOLECALCIFEROL (VITD3) 2,000 UNIT CAP/TAB PO SCH (09:59)
[2021-08-12] MEDS: ASCORBIC ACID 1,000 MG TAB PO SCH (09:59)
[2021-08-12] MEDS ORDERED: AZITHROMYCIN 500MG/ 250ML 250 ML IV SCH (10:00)
[2021-08-12] MEDS ORDERED: ASCO500C49 PO (10:36)
[2021-08-12] MEDS ORDERED: ZINC220C10 PO (10:36)
[2021-08-12] MEDS ORDERED: AZIT500T66 PO (10:36)
[2021-08-12] MEDS ORDERED: CHOL400C7 PO (10:36)
[2021-08-12] MEDS: SODIUM CHLORIDE 0.9% 1,000 ML IV SCH (11:05)
== END 2021-08-12 12:40 | disposition home or self-care (01) | DRG 137 ==
LOC: ER 18:22 → TELE-WESTW 08-11 02:11
PROVIDERS: ADMIT Nurse Practitioner Family; ATTEND Family Medicine
DX: U07.1 COVID-19 (principal); J96.01 Acute respiratory failure with hypoxia; J12.82 Pneumonia due to coronavirus disease 2019; G93.41 Metabolic encephalopathy; F17.210 Nicotine dependence, cigarettes, uncomplicated; F12.10 Cannabis abuse, uncomplicated; F10.10 Alcohol abuse, uncomplicated; S09.90XA Unspecified injury of head, initial encounter; X58.XXXA Exposure to other specified factors, initial encounter; Y93.89 Activity, other specified; Z59.00 Homelessness unspecified; Z71.6 Tobacco abuse counseling; Z71.51 Drug abuse counseling and surveillance of drug abuser; Y92.89 Other specified places as the place of occurrence of the external cause; Y99.8 Other external cause status
CPT/HCPCS: 36415; 70450; 71045; 80053; 80320; 83036; 83605; 83735; 84484; 85025; 85379; 87040; 87426; 93005; 94640; 96361; 96365; 96368; 96375; G0378; J0696; J1100; J3490

== ENCOUNTER 2021-08-21 02:30 | Emergency (ER) | payer MEDICAID ==
[~2021-08-21] VITALS: Ht 180.3 cm; Wt 77.1 kg
[~2021-08-21 02:30] MED LIST changes: +ASCO500C49 PO; +AZIT500T66 PO; +CHOL400C7 PO; +ZINC220C10 PO
[2021-08-21 07:57] VITALS: BP 116/86
[2021-08-21] MEDS ORDERED: cloNIDine HCL 0.1 MG TAB PO ONE (09:00)
== END 2021-08-21 08:04 | disposition home or self-care (01) ==
LOC: ER 02:33
DX: M79.10 Myalgia, unspecified site (principal); J15.9 Unspecified bacterial pneumonia; F17.210 Nicotine dependence, cigarettes, uncomplicated; Z59.00 Homelessness unspecified; Z90.89 Acquired absence of other organs
CPT/HCPCS: 71045

== ENCOUNTER 2021-08-27 04:48 | Emergency (ER) | payer MEDICAID ==
[~2021-08-27] VITALS: Ht 180.3 cm; Wt 81.6 kg
[2021-08-27] MEDS ORDERED: TETANUS-DIPTH-ACEL PERTUSSIS 0.5ML SYR Tdap IM ONE (06:30)
[2021-08-27] MEDS ORDERED: cefTRIAXone W LIDOCAINE 1 GM IM IM ONE (09:00)
[2021-08-27 10:40] VITALS: BP 128/91
== END 2021-08-27 08:49 | disposition home or self-care (01) ==
LOC: ER 04:48
DX: S81.831A Puncture wound without foreign body, right lower leg, initial encounter (principal); F17.210 Nicotine dependence, cigarettes, uncomplicated; F12.10 Cannabis abuse, uncomplicated; Z59.00 Homelessness unspecified; Z90.89 Acquired absence of other organs; W34.00XA Accidental discharge from unspecified firearms or gun, initial encounter; Y93.89 Activity, other specified; Y92.89 Other specified places as the place of occurrence of the external cause; Y99.8 Other external cause status
CPT/HCPCS: 73590; 90471; 90715; 96372; 99284; J0696

== ENCOUNTER 2021-09-18 23:44 | Emergency (ER) | payer MEDICAID ==
[2021-09-19 07:44] VITALS: BP 125/77
== END 2021-09-19 08:10 | disposition home or self-care (01) ==
LOC: ER 23:55
DX: R20.2 Paresthesia of skin (principal); F17.210 Nicotine dependence, cigarettes, uncomplicated; Z90.89 Acquired absence of other organs; Z59.00 Homelessness unspecified; Z79.899 Other long term (current) drug therapy

== ENCOUNTER 2021-09-21 04:01 | Emergency (ER) | payer MEDICAID ==
[~2021-09-21] VITALS: Ht 180.3 cm; Wt 80.7 kg
[2021-09-21 04:04] VITALS: BP 138/83
[2021-09-21] MEDS ORDERED: KETOROLAC TROMETH 30 MG/ML 1ML VIAL IM ONE (04:30)
== END 2021-09-21 05:12 | disposition home or self-care (01) ==
LOC: ER 04:01
DX: R51.9 Headache, unspecified (principal); F17.210 Nicotine dependence, cigarettes, uncomplicated; F12.10 Cannabis abuse, uncomplicated; Z59.00 Homelessness unspecified
CPT/HCPCS: 96372; 99283; J1885

== ENCOUNTER 2021-09-28 23:37 | Emergency (ER) | payer MEDICAID ==
[~2021-09-28] VITALS: Ht 180.3 cm; Wt 77.1 kg
[2021-09-29 01:51] VITALS: BP 113/80
[2021-09-29] MEDS ORDERED: DexAMETHasone SOD PHOS 10MG/1ML VIAL INJ IV ONE (02:00)
[2021-09-30] MEDS ORDERED: ONDA-144 PO (20:41)
== END 2021-09-29 02:22 | disposition home or self-care (01) ==
LOC: ER 23:37
DX: M79.2 Neuralgia and neuritis, unspecified (principal); M79.632 Pain in left forearm; F17.210 Nicotine dependence, cigarettes, uncomplicated; Z59.00 Homelessness unspecified; Z90.89 Acquired absence of other organs; Z79.899 Other long term (current) drug therapy
CPT/HCPCS: 96374; 99283; J1100

== ENCOUNTER 2021-09-30 16:58 | Emergency (ER) | payer MEDICAID ==
[~2021-09-30] VITALS: Ht 180.3 cm; Wt 77.1 kg
[2021-09-30] MEDS ORDERED: ONDANSETRON HCL 4 MG/2 ML VIAL IV ONE (17:15)
[2021-09-30] MEDS ORDERED: SODIUM CHLORIDE 0.9% 1,000 ML IVB ONE (17:15)
[2021-09-30 18:52] LABS: Basophils # (auto) 0.1 10 ^3/uL (0-0.2); Eosinophils # (auto) 0.1 10 ^3/uL (0-0.8); Eosinophils % (auto) 0.7 % (0.0-7.0); Hemoglobin 12.9 g/dL (13.5-17.5); Monocytes # (auto) 0.9 10 ^3/uL (0-1.3); Red Cell Distribution Width 13.9 % (11.8-14.3)
[2021-09-30 18:54] LABS: Basophils % (auto) 0.8 % (0.0-2.0); Hematocrit 38.4 % (41.0-53.0); Lymphocytes % (auto) 15.5 % (10.0-50.0); Mean Corpuscular Hemoglobin 24.8 pg (28.0-32.0); Mean Corpuscular Hgb Conc. 33.5 g/dL (32.0-36.0); Monocytes % (auto) 7.4 % (0.0-12.0); Neutrophils # (auto) 9.5 10 ^3/uL (1.6-8.6); Neutrophils % (auto) 75.6 % (37.0-80.0); Red Blood Cells 5.19 10^6/uL (4.5-5.90); White Blood Cell 12.6 10^3/uL (4.4-10.8)
[2021-09-30 19:05] LABS: Albumin 3.8 g/dL (3.4-5.0); BUN/Creatinine Ratio 21.2; Calcium 9.5 mg/dL (8.5-10.1); Potassium 4.1 mmol/L (3.5-5.1)
[2021-09-30 19:13] LABS: Bilirubin, Total 0.4 mg/dL (0.2-1.0); Total Protein 7.1 g/dL (6.4-8.2)
[2021-09-30] MEDS ORDERED: ONDA-144 PO (20:41)
[2021-09-30 21:08] VITALS: BP 146/77
== END 2021-09-30 21:51 | disposition home or self-care (01) ==
LOC: EDBD 16:58 → ER 16:58
DX: R10.32 Left lower quadrant pain (principal); D72.829 Elevated white blood cell count, unspecified; F17.210 Nicotine dependence, cigarettes, uncomplicated; F12.10 Cannabis abuse, uncomplicated; Z59.00 Homelessness unspecified
CPT/HCPCS: 36415; 74176; 80053; 82150; 83690; 85025; 96361; 96374; 99284; J2405; J7030

== ENCOUNTER 2021-10-05 00:58 | Emergency (ER) | payer MEDICAID ==
[~2021-10-05] VITALS: Ht 180.3 cm; Wt 77.1 kg
[~2021-10-05 00:58] MED LIST changes: +ONDA-144 PO
[2021-10-05 01:14] VITALS: BP 147/89
== END 2021-10-05 06:38 | disposition left against medical advice (07) ==
LOC: ER 00:58
DX: J02.9 Acute pharyngitis, unspecified (principal); Z53.21 Procedure and treatment not carried out due to patient leaving prior to being seen by health care provider

== ENCOUNTER 2021-11-29 02:23 | Emergency (ER) | payer MEDICAID ==
[~2021-11-29] VITALS: Ht 180.3 cm; Wt 77.1 kg
[2021-11-29 08:24] LABS: Basophils # (auto) 0.1 10 ^3/uL (0-0.2); Basophils % (auto) 1.1 % (0.0-2.0); Eosinophils # (auto) 0.2 10 ^3/uL (0-0.8); Hemoglobin 13.3 g/dL (13.5-17.5)
[2021-11-29 08:26] LABS: Eosinophils % (auto) 2.7 % (0.0-7.0); Lymphocytes # (auto) 2.1 10 ^3/uL (0.4-5.4); Lymphocytes % (auto) 36.5 % (10.0-50.0); Mean Corpuscular Hemoglobin 24.5 pg (28.0-32.0); Mean Corpuscular Hgb Conc. 33.2 g/dL (32.0-36.0); Mean Corpuscular Volume 73.9 fL (80.0-100.0); Monocytes # (auto) 0.3 10 ^3/uL (0-1.3); Monocytes % (auto) 5.5 % (0.0-12.0); Neutrophils # (auto) 3.1 10 ^3/uL (1.6-8.6); Neutrophils % (auto) 54.2 % (37.0-80.0); Nucleated Red Blood Cells % 0.1 %; Red Blood Cells 5.41 10^6/uL (4.5-5.90); Red Cell Distribution Width 15.1 % (11.8-14.3); White Blood Cell 5.7 10^3/uL (4.4-10.8)
[2021-11-29 08:27] VITALS: BP 122/68
[2021-11-29 08:39] LABS: Albumin 3.8 g/dL (3.4-5.0); Calcium 9.1 mg/dL (8.5-10.1); Potassium 3.8 mmol/L (3.5-5.1)
[2021-11-29 08:46] LABS: BUN/Creatinine Ratio 15.1; Bilirubin, Total 0.4 mg/dL (0.2-1.0)
== END 2021-11-29 16:04 | disposition left against medical advice (07) ==
LOC: ER 02:23
DX: R10.84 Generalized abdominal pain (principal); F17.210 Nicotine dependence, cigarettes, uncomplicated; Z90.89 Acquired absence of other organs; Z79.899 Other long term (current) drug therapy; Z79.2 Long term (current) use of antibiotics
CPT/HCPCS: 36415; 74176; 80053; 83690; 85025

== ENCOUNTER 2021-12-16 05:04 | Emergency (ER) | payer MEDICAID ==
[~2021-12-16] VITALS: Ht 177.8 cm; Wt 77.1 kg
[2021-12-16 05:05] VITALS: BP 141/86
== END 2021-12-16 07:36 | disposition left against medical advice (07) ==
LOC: ER 05:04
DX: R07.89 Other chest pain (principal); Z53.21 Procedure and treatment not carried out due to patient leaving prior to being seen by health care provider
CPT/HCPCS: 71045; 93005

== ENCOUNTER 2022-01-26 02:49 | Emergency (ER) | payer MEDICAID ==
[~2022-01-26] VITALS: Ht 172.7 cm; Wt 67.1 kg
[2022-01-26 03:27] VITALS: BP 109/73
[2022-01-26 04:26] LABS: Basophils # (auto) 0.1 10 ^3/uL (0-0.2); Basophils % (auto) 1.1 % (0.0-2.0); Eosinophils # (auto) 0.1 10 ^3/uL (0-0.8); Eosinophils % (auto) 0.9 % (0.0-7.0); Hematocrit 39.8 % (41.0-53.0); Hemoglobin 12.8 g/dL (13.5-17.5); Lymphocytes # (auto) 2.2 10 ^3/uL (0.4-5.4); Lymphocytes % (auto) 33.3 % (10.0-50.0); Mean Corpuscular Hemoglobin 24.2 pg (28.0-32.0); Mean Corpuscular Hgb Conc. 32.2 g/dL (32.0-36.0); Monocytes # (auto) 0.5 10 ^3/uL (0-1.3); Monocytes % (auto) 7.1 % (0.0-12.0); Neutrophils # (auto) 3.8 10 ^3/uL (1.6-8.6); Neutrophils % (auto) 57.6 % (37.0-80.0); Nucleated Red Blood Cells % 0.1 %; Red Blood Cells 5.31 10^6/uL (4.5-5.90); Red Cell Distribution Width 14.6 % (11.8-14.3); White Blood Cell 6.6 10^3/uL (4.4-10.8)
[2022-01-26 04:37] LABS: INR 1.1 (0.9-1.15); Partial Thromboplastin Time 28.8 sec (23.6-33.0)
[2022-01-26 04:43] LABS: Calcium 9.2 mg/dL (8.5-10.1); Magnesium 2.5 mg/dL (1.6-2.6); Potassium 4.2 mmol/L (3.5-5.1)
[2022-01-26 04:51] LABS: BUN/Creatinine Ratio 12.8; Bilirubin, Total 0.4 mg/dL (0.2-1.0); Total Protein 7.1 g/dL (6.4-8.2)
== END 2022-01-26 08:40 | disposition left against medical advice (07) ==
LOC: ER 02:49
DX: R07.9 Chest pain, unspecified (principal); R51.9 Headache, unspecified; Z53.21 Procedure and treatment not carried out due to patient leaving prior to being seen by health care provider
CPT/HCPCS: 36415; 80053; 83735; 83880; 84443; 84484; 85025; 85610; 85730; 93005

== ENCOUNTER 2022-02-03 23:17 | Emergency (ER) | payer MEDICAID ==
[~2022-02-03] VITALS: Ht 180.3 cm; Wt 77.6 kg
[2022-02-04 07:31] VITALS: BP 108/69
[2022-02-04] MEDS ORDERED: IBUP800T27 PO (08:22)
== END 2022-02-04 08:30 | disposition home or self-care (01) ==
LOC: ER 23:17
DX: S00.83XA Contusion of other part of head, initial encounter (principal); F17.210 Nicotine dependence, cigarettes, uncomplicated; F12.10 Cannabis abuse, uncomplicated; Z59.00 Homelessness unspecified; X58.XXXA Exposure to other specified factors, initial encounter; Y93.89 Activity, other specified; Y92.89 Other specified places as the place of occurrence of the external cause; Y99.8 Other external cause status
CPT/HCPCS: 70486

== ENCOUNTER 2022-04-23 23:07 | Emergency (ER) | payer MEDICAID ==
[~2022-04-23] VITALS: Ht 180.3 cm; Wt 72.0 kg
[~2022-04-23 23:07] MED LIST changes: +IBUP800T27 PO
[2022-04-23 23:34] VITALS: BP 113/68
[2022-04-25] MEDS ORDERED: IBUP800T27 PO (07:27)
[2022-04-25] MEDS ORDERED: METH750T22 PO (07:27)
== END 2022-04-24 03:07 | disposition home or self-care (01) ==
LOC: ER 23:07
DX: M79.644 Pain in right finger(s) (principal); F17.210 Nicotine dependence, cigarettes, uncomplicated; Z90.89 Acquired absence of other organs; Z59.00 Homelessness unspecified; Z79.1 Long term (current) use of non-steroidal anti-inflammatories (NSAID); Z79.899 Other long term (current) drug therapy
CPT/HCPCS: 73140

== ENCOUNTER 2022-04-25 01:39 | Emergency (ER) | payer MEDICAID ==
[~2022-04-25] VITALS: Ht 180.3 cm; Wt 77.2 kg
[2022-04-25 06:16] VITALS: BP 107/63
[2022-04-25] MEDS ORDERED: METH750T22 PO (07:27)
[2022-04-25] MEDS ORDERED: IBUP800T27 PO (07:27)
[2022-04-25] MEDS ORDERED: KETOROLAC TROMETH 60MG/2ML VIAL IM ONE (07:30)
== END 2022-04-25 07:55 | disposition home or self-care (01) ==
LOC: ER 01:39
DX: G89.29 Other chronic pain (principal); M54.50 Low back pain, unspecified; F17.210 Nicotine dependence, cigarettes, uncomplicated; Z90.89 Acquired absence of other organs; Z79.1 Long term (current) use of non-steroidal anti-inflammatories (NSAID); Z79.2 Long term (current) use of antibiotics; Z79.899 Other long term (current) drug therapy
CPT/HCPCS: 96372; 99283; J1885

== ENCOUNTER 2022-04-27 11:13 | Emergency (ER) | payer MEDICAID ==
[~2022-04-27 11:13] MED LIST changes: +METH750T22 PO
[2022-04-27] MEDS ORDERED: IBU600T PO (21:48)
== END 2022-04-27 11:51 | disposition left against medical advice (07) ==
LOC: ER 11:16
DX: R07.9 Chest pain, unspecified (principal); Z53.21 Procedure and treatment not carried out due to patient leaving prior to being seen by health care provider

== ENCOUNTER 2022-04-27 18:55 | Emergency (ER) | payer MEDICAID ==
[~2022-04-27] VITALS: Ht 177.8 cm; Wt 72.2 kg
[2022-04-27 19:27] VITALS: BP 125/65
[2022-04-27 20:17] LABS: Basophils # (auto) 0.1 10 ^3/uL (0-0.2); Neutrophils # (auto) 4.9 10 ^3/uL (1.6-8.6); Red Blood Cells 4.64 10^6/uL (4.5-5.90)
[2022-04-27 20:18] LABS: Basophils % (auto) 0.8 % (0.0-2.0); Eosinophils # (auto) 0.1 10 ^3/uL (0-0.8); Eosinophils % (auto) 1.9 % (0.0-7.0); Hematocrit 35.6 % (41.0-53.0); Hemoglobin 11.8 g/dL (13.5-17.5); Lymphocytes # (auto) 2.1 10 ^3/uL (0.4-5.4); Lymphocytes % (auto) 26.9 % (10.0-50.0); Mean Corpuscular Hemoglobin 25.4 pg (28.0-32.0); Mean Corpuscular Hgb Conc. 33.1 g/dL (32.0-36.0); Mean Corpuscular Volume 76.8 fL (80.0-100.0); Monocytes # (auto) 0.5 10 ^3/uL (0-1.3); Monocytes % (auto) 6.3 % (0.0-12.0); Neutrophils % (auto) 64.1 % (37.0-80.0); Red Cell Distribution Width 14.5 % (11.8-14.3); White Blood Cell 7.6 10^3/uL (4.4-10.8)
[2022-04-27 20:32] LABS: Albumin 3.5 g/dL (3.4-5.0); Calcium 8.1 mg/dL (8.5-10.1); Potassium 4.1 mmol/L (3.5-5.1)
[2022-04-27 20:34] LABS: Bilirubin, Total 0.5 mg/dL (0.2-1.0); Total Protein 5.9 g/dL (6.4-8.2)
[2022-04-27] MEDS ORDERED: IBU600T PO (21:48)
[2022-04-27] MEDS ORDERED: KETOROLAC TROMETH 60MG/2ML VIAL IM ONE (22:00)
== END 2022-04-27 23:07 | disposition home or self-care (01) ==
LOC: ER 18:55
DX: N20.0 Calculus of kidney (principal); R11.0 Nausea; F17.210 Nicotine dependence, cigarettes, uncomplicated; Z90.89 Acquired absence of other organs; Z59.00 Homelessness unspecified; Z79.1 Long term (current) use of non-steroidal anti-inflammatories (NSAID); Z79.899 Other long term (current) drug therapy
CPT/HCPCS: 36415; 74176; 80053; 83690; 85025; 99284; J1885

== ENCOUNTER 2022-04-29 00:45 | Emergency (ER) | payer MEDICAID ==
[~2022-04-29] VITALS: Ht 180.3 cm; Wt 75.0 kg
[~2022-04-29 00:45] MED LIST changes: +IBU600T PO
[2022-04-29 03:12] LABS: Basophils # (auto) 0.1 10 ^3/uL (0-0.2); Eosinophils # (auto) 0.1 10 ^3/uL (0-0.8); Lymphocytes # (auto) 1.7 10 ^3/uL (0.4-5.4); Mean Corpuscular Hgb Conc. 32.7 g/dL (32.0-36.0); Monocytes # (auto) 0.3 10 ^3/uL (0-1.3); Neutrophils # (auto) 3.7 10 ^3/uL (1.6-8.6); Nucleated Red Blood Cells % 0.1 %; White Blood Cell 5.9 10^3/uL (4.4-10.8)
[2022-04-29 03:14] LABS: Basophils % (auto) 1.3 % (0.0-2.0); Eosinophils % (auto) 1.7 % (0.0-7.0); Hematocrit 37.9 % (41.0-53.0); Hemoglobin 12.4 g/dL (13.5-17.5); Lymphocytes % (auto) 29.2 % (10.0-50.0); Mean Corpuscular Hemoglobin 24.9 pg (28.0-32.0); Mean Corpuscular Volume 76.2 fL (80.0-100.0); Monocytes % (auto) 5.5 % (0.0-12.0); Neutrophils % (auto) 62.3 % (37.0-80.0); Red Blood Cells 4.98 10^6/uL (4.5-5.90); Red Cell Distribution Width 14.9 % (11.8-14.3)
[2022-04-29 04:06] LABS: Albumin 3.7 g/dL (3.4-5.0); BUN/Creatinine Ratio 12.5; Calcium 8.4 mg/dL (8.5-10.1); Potassium 4.5 mmol/L (3.5-5.1)
[2022-04-29 04:09] LABS: Bilirubin, Total 0.4 mg/dL (0.2-1.0); Total Protein 6.1 g/dL (6.4-8.2)
[2022-04-29 05:45] VITALS: BP 109/71
== END 2022-04-29 05:55 | disposition home or self-care (01) ==
LOC: ER 00:45
DX: R07.89 Other chest pain (principal); F17.210 Nicotine dependence, cigarettes, uncomplicated; F12.10 Cannabis abuse, uncomplicated; Z59.00 Homelessness unspecified
CPT/HCPCS: 36415; 71045; 80053; 84484; 85025; 93005

== ENCOUNTER 2022-05-04 03:20 | Emergency (ER) | payer MEDICAID ==
[~2022-05-04] VITALS: Ht 180.3 cm; Wt 69.7 kg
[2022-05-04] MEDS ORDERED: KETOROLAC TROMETH 60MG/2ML VIAL IM ONE (07:45)
[2022-05-04 07:58] VITALS: BP 126/65
== END 2022-05-04 07:59 | disposition left against medical advice (07) ==
LOC: ER 03:23
DX: G44.209 Tension-type headache, unspecified, not intractable (principal); F17.210 Nicotine dependence, cigarettes, uncomplicated; F12.10 Cannabis abuse, uncomplicated; Z59.00 Homelessness unspecified; Z90.89 Acquired absence of other organs; Z79.899 Other long term (current) drug therapy
CPT/HCPCS: 96372; 99283; J1885

== ENCOUNTER 2022-05-07 00:25 | Emergency (ER) | payer MEDICAID ==
[~2022-05-07] VITALS: Ht 180.3 cm; Wt 79.0 kg
[2022-05-07] MEDS ORDERED: KETOROLAC TROMETH 60MG/2ML VIAL IM ONE (07:30)
[2022-05-07 08:06] VITALS: BP 113/80
== END 2022-05-07 07:28 | disposition home or self-care (01) ==
LOC: ER 00:25
DX: G44.209 Tension-type headache, unspecified, not intractable (principal); F17.210 Nicotine dependence, cigarettes, uncomplicated; F12.10 Cannabis abuse, uncomplicated; Z59.00 Homelessness unspecified
CPT/HCPCS: 96372; 99283; J1885

== ENCOUNTER 2022-05-07 16:31 | Emergency (ER) | payer MEDICAID ==
[~2022-05-07] VITALS: Ht 180.3 cm; Wt 70.1 kg
[2022-05-07 16:41] VITALS: BP 138/84
== END 2022-05-08 02:03 | disposition left against medical advice (07) ==
LOC: ER 16:31
DX: J11.1 Influenza due to unidentified influenza virus with other respiratory manifestations (principal); F17.210 Nicotine dependence, cigarettes, uncomplicated; F12.10 Cannabis abuse, uncomplicated; Z59.00 Homelessness unspecified

== ENCOUNTER 2022-05-11 21:26 | Emergency (ER) | payer MEDICAID ==
[~2022-05-11] VITALS: Ht 180.3 cm; Wt 70.5 kg
[2022-05-11] MEDS ORDERED: ASPirin 325 MG TAB PO ONE (21:45)
[2022-05-11] MEDS ORDERED: LORazepam 0.5 MG TAB PO ONE (22:00)
[2022-05-11 22:14] LABS: Basophils # (auto) 0.1 10 ^3/uL (0-0.2); Eosinophils # (auto) 0.1 10 ^3/uL (0-0.8); Hemoglobin 12.8 g/dL (13.5-17.5); Mean Corpuscular Hgb Conc. 32.8 g/dL (32.0-36.0)
[2022-05-11 22:15] LABS: Hematocrit 39.2 % (41.0-53.0); Lymphocytes # (auto) 2.1 10 ^3/uL (0.4-5.4); Lymphocytes % (auto) 23.5 % (10.0-50.0); Mean Corpuscular Hemoglobin 24.8 pg (28.0-32.0); Mean Corpuscular Volume 75.7 fL (80.0-100.0); Monocytes # (auto) 0.3 10 ^3/uL (0-1.3); Monocytes % (auto) 3.5 % (0.0-12.0); Neutrophils # (auto) 6.5 10 ^3/uL (1.6-8.6); Nucleated Red Blood Cells % 0.1 %; Red Blood Cells 5.17 10^6/uL (4.5-5.90); Red Cell Distribution Width 14.8 % (11.8-14.3); White Blood Cell 9.1 10^3/uL (4.4-10.8)
[2022-05-11 22:27] LABS: Albumin 3.9 g/dL (3.4-5.0); Potassium 4.2 mmol/L (3.5-5.1)
[2022-05-11 22:31] LABS: Bilirubin, Total 0.2 mg/dL (0.2-1.0); Total Protein 6.7 g/dL (6.4-8.2)
[2022-05-12 01:38] VITALS: BP 116/80
== END 2022-05-12 01:45 | disposition home or self-care (01) ==
LOC: ER 21:26
DX: R07.89 Other chest pain (principal); F41.9 Anxiety disorder, unspecified; F20.9 Schizophrenia, unspecified; F17.210 Nicotine dependence, cigarettes, uncomplicated; F12.10 Cannabis abuse, uncomplicated; Z59.00 Homelessness unspecified
CPT/HCPCS: 36415; 80053; 84484; 85025; 93005

== ENCOUNTER 2022-05-18 01:03 | Emergency (ER) | payer MEDICAID ==
[~2022-05-18] VITALS: Ht 180.3 cm; Wt 80.0 kg
[2022-05-18] MEDS ORDERED: KETOROLAC TROMETH 60MG/2ML VIAL IM ONE (03:30)
[2022-05-18 06:04] VITALS: BP 103/59
== END 2022-05-18 06:04 | disposition home or self-care (01) ==
LOC: ER 01:06
DX: M54.50 Low back pain, unspecified (principal); F17.210 Nicotine dependence, cigarettes, uncomplicated; F12.10 Cannabis abuse, uncomplicated; Z59.00 Homelessness unspecified; Z88.6 Allergy status to analgesic agent; W07.XXXA Fall from chair, initial encounter; Y93.89 Activity, other specified; Y92.89 Other specified places as the place of occurrence of the external cause; Y99.8 Other external cause status
CPT/HCPCS: 96372; 99283; J1885

== ENCOUNTER 2022-05-23 02:32 | Emergency (ER) | payer MEDICAID ==
[~2022-05-23] VITALS: Ht 180.3 cm; Wt 72.0 kg
[2022-05-23 04:01] VITALS: BP 135/88
[2022-05-23] MEDS ORDERED: KETOROLAC TROMETH 60MG/2ML VIAL IM ONE (04:15)
== END 2022-05-23 04:35 | disposition home or self-care (01) ==
LOC: ER 02:32
DX: R51.9 Headache, unspecified (principal); F17.210 Nicotine dependence, cigarettes, uncomplicated; F12.10 Cannabis abuse, uncomplicated; Z59.00 Homelessness unspecified
CPT/HCPCS: 96372; 99283; J1885

== ENCOUNTER 2022-05-24 01:29 | Emergency (ER) | payer MEDICAID ==
[~2022-05-24] VITALS: Ht 177.8 cm; Wt 72.7 kg
[2022-05-24] MEDS ORDERED: KETOROLAC TROMETH 60MG/2ML VIAL IM ONE (04:30)
[2022-05-24 04:38] VITALS: BP 110/81
== END 2022-05-24 04:39 | disposition home or self-care (01) ==
LOC: ER 01:29
DX: R51.9 Headache, unspecified (principal); F17.210 Nicotine dependence, cigarettes, uncomplicated; F12.90 Cannabis use, unspecified, uncomplicated; F32.9 Major depressive disorder, single episode, unspecified; Z90.89 Acquired absence of other organs
CPT/HCPCS: 96372; 99283; J1885

== ENCOUNTER 2022-05-26 02:36 | Emergency (ER) | payer MEDICAID ==
[~2022-05-26] VITALS: Ht 180.3 cm; Wt 75.0 kg
[2022-05-26 05:22] VITALS: BP 112/86
== END 2022-05-26 05:26 | disposition home or self-care (01) ==
LOC: ER 02:39
DX: R51.9 Headache, unspecified (principal); G89.4 Chronic pain syndrome; F17.210 Nicotine dependence, cigarettes, uncomplicated; F12.10 Cannabis abuse, uncomplicated; Z59.00 Homelessness unspecified

== ENCOUNTER 2022-05-31 02:51 | Emergency (ER) | payer MEDICAID ==
[~2022-05-31] VITALS: Ht 180.3 cm; Wt 75.0 kg
[2022-05-31] MEDS ORDERED: IBUP800T27 PO (07:03)
[2022-05-31] MEDS ORDERED: IBUPROFEN 800 MG TAB PO ONE (07:15)
[2022-05-31 07:25] VITALS: BP 135/97
== END 2022-05-31 07:19 | disposition home or self-care (01) ==
LOC: ER 02:51
DX: G89.29 Other chronic pain (principal); M79.661 Pain in right lower leg; F17.210 Nicotine dependence, cigarettes, uncomplicated; Z90.89 Acquired absence of other organs; Z59.00 Homelessness unspecified; Z79.1 Long term (current) use of non-steroidal anti-inflammatories (NSAID); Z79.899 Other long term (current) drug therapy; Z79.2 Long term (current) use of antibiotics

== ENCOUNTER 2022-06-02 21:16 | Emergency (ER) | payer MEDICAID ==
[~2022-06-02] VITALS: Ht 180.3 cm; Wt 170.0 kg
[2022-06-02 22:40] VITALS: BP 148/82
== END 2022-06-03 04:42 | disposition left against medical advice (07) ==
LOC: ER 21:19
DX: H57.89 Other specified disorders of eye and adnexa (principal); Z53.21 Procedure and treatment not carried out due to patient leaving prior to being seen by health care provider

== ENCOUNTER 2022-06-06 23:28 | Emergency (ER) | payer MEDICAID ==
[~2022-06-06] VITALS: Ht 180.3 cm; Wt 73.9 kg
[2022-06-06 23:39] VITALS: BP 143/90
[2022-06-07 00:37] LABS: Basophils # (auto) 0.1 10 ^3/uL (0-0.2); Eosinophils # (auto) 0.1 10 ^3/uL (0-0.8); Lymphocytes # (auto) 2.1 10 ^3/uL (0.4-5.4); Lymphocytes % (auto) 27.6 % (10.0-50.0); Mean Corpuscular Volume 76.6 fL (80.0-100.0); Neutrophils # (auto) 4.7 10 ^3/uL (1.6-8.6); Nucleated Red Blood Cells % 0.1 %; White Blood Cell 7.5 10^3/uL (4.4-10.8)
[2022-06-07 00:39] LABS: Basophils % (auto) 1.2 % (0.0-2.0); Eosinophils % (auto) 1.3 % (0.0-7.0); Hematocrit 42.7 % (41.0-53.0); Hemoglobin 14.2 g/dL (13.5-17.5); Mean Corpuscular Hemoglobin 25.4 pg (28.0-32.0); Mean Corpuscular Hgb Conc. 33.2 g/dL (32.0-36.0); Monocytes # (auto) 0.6 10 ^3/uL (0-1.3); Monocytes % (auto) 7.5 % (0.0-12.0); Neutrophils % (auto) 62.4 % (37.0-80.0); Red Blood Cells 5.58 10^6/uL (4.5-5.90)
[2022-06-07 00:45] LABS: Albumin 4.4 g/dL (3.4-5.0); BUN/Creatinine Ratio 16.1; Calcium 9.5 mg/dL (8.5-10.1); Potassium 4.3 mmol/L (3.5-5.1)
[2022-06-07 00:48] LABS: Bilirubin, Total 0.4 mg/dL (0.2-1.0); Total Protein 7.4 g/dL (6.4-8.2)
== END 2022-06-07 07:40 | disposition home or self-care (01) ==
LOC: ER 23:32
DX: R07.89 Other chest pain (principal); F17.210 Nicotine dependence, cigarettes, uncomplicated; Z90.89 Acquired absence of other organs; Z79.1 Long term (current) use of non-steroidal anti-inflammatories (NSAID); Z79.899 Other long term (current) drug therapy
CPT/HCPCS: 36415; 71045; 80053; 84484; 85025; 93005

== ENCOUNTER 2022-06-11 19:38 | Emergency (ER) | payer MEDICAID ==
[~2022-06-11] VITALS: Ht 180.3 cm; Wt 72.7 kg
[2022-06-11 22:10] VITALS: BP 126/88
== END 2022-06-11 22:48 | disposition home or self-care (01) ==
LOC: ER 19:41
DX: R04.0 Epistaxis (principal); F17.210 Nicotine dependence, cigarettes, uncomplicated; Z90.89 Acquired absence of other organs; Z79.1 Long term (current) use of non-steroidal anti-inflammatories (NSAID); Z79.899 Other long term (current) drug therapy

== ENCOUNTER 2022-06-24 01:08 | Emergency (ER) | payer MEDICAID ==
[~2022-06-24] VITALS: Ht 180.3 cm; Wt 75.9 kg
[2022-06-24 05:35] VITALS: BP 111/75
[2022-06-24] MEDS ORDERED: IBUP800T27 PO (05:37)
[2022-06-24] MEDS ORDERED: CYCL-837 PO (05:37)
== END 2022-06-24 05:37 | disposition home or self-care (01) ==
LOC: ER 01:09
DX: S39.012A Strain of muscle, fascia and tendon of lower back, initial encounter (principal); G89.29 Other chronic pain; F17.210 Nicotine dependence, cigarettes, uncomplicated; Z90.89 Acquired absence of other organs; Z59.00 Homelessness unspecified; Z79.1 Long term (current) use of non-steroidal anti-inflammatories (NSAID); Z79.2 Long term (current) use of antibiotics; Z79.899 Other long term (current) drug therapy; X58.XXXA Exposure to other specified factors, initial encounter; Y93.89 Activity, other specified; Y92.89 Other specified places as the place of occurrence of the external cause; Y99.8 Other external cause status

== ENCOUNTER 2022-06-26 00:34 | Emergency (ER) | payer MEDICAID ==
[~2022-06-26] VITALS: Ht 180.3 cm; Wt 72.0 kg
[~2022-06-26 00:34] MED LIST changes: +CYCL-837 PO
[2022-06-26 00:43] VITALS: BP 117/83
== END 2022-06-26 03:29 | disposition home or self-care (01) ==
LOC: ER 00:34
DX: S39.012A Strain of muscle, fascia and tendon of lower back, initial encounter (principal); G89.4 Chronic pain syndrome; F32.9 Major depressive disorder, single episode, unspecified; F17.210 Nicotine dependence, cigarettes, uncomplicated; F12.90 Cannabis use, unspecified, uncomplicated; Z98.890 Other specified postprocedural states; Z90.89 Acquired absence of other organs; Z79.899 Other long term (current) drug therapy; X58.XXXA Exposure to other specified factors, initial encounter; Y93.89 Activity, other specified; Y92.89 Other specified places as the place of occurrence of the external cause; Y99.8 Other external cause status

== ENCOUNTER 2022-06-27 06:27 | Emergency (ER) | payer MEDICAID ==
[~2022-06-27] VITALS: Ht 180.3 cm; Wt 68.1 kg
[2022-06-27 07:55] VITALS: BP 119/78
== END 2022-06-27 07:55 | disposition home or self-care (01) ==
LOC: ER 06:27
DX: G89.29 Other chronic pain (principal); M79.661 Pain in right lower leg; R53.83 Other fatigue; F17.210 Nicotine dependence, cigarettes, uncomplicated; Z90.89 Acquired absence of other organs; Z59.00 Homelessness unspecified; Z79.1 Long term (current) use of non-steroidal anti-inflammatories (NSAID); Z79.899 Other long term (current) drug therapy; Z79.2 Long term (current) use of antibiotics

== ENCOUNTER 2022-07-02 00:38 | Emergency (ER) | payer MEDICAID ==
[~2022-07-02] VITALS: Ht 180.3 cm; Wt 77.2 kg
[2022-07-02 01:23] LABS: Basophils # (auto) 0.1 10 ^3/uL (0-0.2); Eosinophils # (auto) 0.1 10 ^3/uL (0-0.8); Eosinophils % (auto) 1.9 % (0.0-7.0); Mean Corpuscular Hgb Conc. 32.5 g/dL (32.0-36.0); Neutrophils # (auto) 3.4 10 ^3/uL (1.6-8.6); Nucleated Red Blood Cells % 0.1 %; Red Cell Distribution Width 14.3 % (11.8-14.3); White Blood Cell 6.6 10^3/uL (4.4-10.8)
[2022-07-02 01:25] LABS: Basophils % (auto) 0.8 % (0.0-2.0); Hematocrit 42.3 % (41.0-53.0); Hemoglobin 13.8 g/dL (13.5-17.5); Lymphocytes # (auto) 2.5 10 ^3/uL (0.4-5.4); Lymphocytes % (auto) 37.3 % (10.0-50.0); Mean Corpuscular Hemoglobin 24.8 pg (28.0-32.0); Mean Corpuscular Volume 76.2 fL (80.0-100.0); Monocytes # (auto) 0.6 10 ^3/uL (0-1.3); Monocytes % (auto) 8.5 % (0.0-12.0); Neutrophils % (auto) 51.5 % (37.0-80.0); Red Blood Cells 5.55 10^6/uL (4.5-5.90)
[2022-07-02 01:40] LABS: Calcium 9.2 mg/dL (8.5-10.1); Potassium 4.7 mmol/L (3.5-5.1)
[2022-07-02 01:42] LABS: Bilirubin, Total 0.3 mg/dL (0.2-1.0); Total Protein 6.9 g/dL (6.4-8.2)
[2022-07-02 06:50] VITALS: BP 134/76
== END 2022-07-02 07:56 | disposition home or self-care (01) ==
LOC: ER 00:42
DX: R07.89 Other chest pain (principal); F17.210 Nicotine dependence, cigarettes, uncomplicated; F12.10 Cannabis abuse, uncomplicated; Z59.00 Homelessness unspecified
CPT/HCPCS: 36415; 71045; 80053; 83880; 84484; 85025; 93005

== ENCOUNTER 2022-07-07 05:52 | Emergency (ER) | payer MEDICAID ==
[~2022-07-07] VITALS: Ht 180.3 cm; Wt 77.0 kg
[2022-07-07 08:06] VITALS: BP 140/64
== END 2022-07-07 10:01 | disposition home or self-care (01) ==
LOC: ER 05:52
DX: J06.9 Acute upper respiratory infection, unspecified (principal); F17.210 Nicotine dependence, cigarettes, uncomplicated; Z59.00 Homelessness unspecified; Z90.89 Acquired absence of other organs; Z79.1 Long term (current) use of non-steroidal anti-inflammatories (NSAID); Z79.899 Other long term (current) drug therapy; Z20.822 Contact with and (suspected) exposure to COVID-19
CPT/HCPCS: 36415; 87426; 87804

== ENCOUNTER 2022-07-17 00:04 | Emergency (ER) | payer MEDICAID ==
[~2022-07-17] VITALS: Ht 182.9 cm; Wt 77.2 kg
[2022-07-17 00:20] VITALS: BP 120/77
[2022-07-17 00:35] LABS: Basophils # (auto) 0.1 10 ^3/uL (0-0.2); Eosinophils # (auto) 0.2 10 ^3/uL (0-0.8); Hematocrit 42.8 % (41.0-53.0); Hemoglobin 13.8 g/dL (13.5-17.5); Neutrophils # (auto) 3.6 10 ^3/uL (1.6-8.6); White Blood Cell 6.9 10^3/uL (4.4-10.8)
[2022-07-17 00:37] LABS: Lymphocytes # (auto) 2.4 10 ^3/uL (0.4-5.4); Mean Corpuscular Hemoglobin 24.5 pg (28.0-32.0); Mean Corpuscular Hgb Conc. 32.2 g/dL (32.0-36.0); Mean Corpuscular Volume 76.1 fL (80.0-100.0); Monocytes # (auto) 0.6 10 ^3/uL (0-1.3); Monocytes % (auto) 8.2 % (0.0-12.0); Neutrophils % (auto) 52.8 % (37.0-80.0); Nucleated Red Blood Cells % 0.1 %; Red Blood Cells 5.63 10^6/uL (4.5-5.90); Red Cell Distribution Width 14.3 % (11.8-14.3)
[2022-07-17 00:43] LABS: INR 0.98 (0.9-1.15); Partial Thromboplastin Time 26.5 sec (24.6-33.4)
[2022-07-17 00:46] LABS: Albumin 3.9 g/dL (3.4-5.0); BUN/Creatinine Ratio 12.3; Calcium 9.3 mg/dL (8.5-10.1); Potassium 4.4 mmol/L (3.5-5.1)
[2022-07-17 00:49] LABS: Bilirubin, Total 0.2 mg/dL (0.2-1.0); Total Protein 6.7 g/dL (6.4-8.2)
== END 2022-07-17 08:17 | disposition left against medical advice (07) ==
LOC: ER 00:04
DX: R07.89 Other chest pain (principal); F32.9 Major depressive disorder, single episode, unspecified; F17.210 Nicotine dependence, cigarettes, uncomplicated; F12.90 Cannabis use, unspecified, uncomplicated; Z59.00 Homelessness unspecified; Z90.89 Acquired absence of other organs; Z79.899 Other long term (current) drug therapy
CPT/HCPCS: 36415; 71045; 80053; 83880; 84484; 85025; 85610; 85730; 93005

== ENCOUNTER 2022-07-18 00:38 | Emergency (ER) | payer MEDICAID ==
[~2022-07-18] VITALS: Ht 180.3 cm; Wt 76.0 kg
[2022-07-18 03:22] LABS: Basophils # (auto) 0.1 10 ^3/uL (0-0.2); Basophils % (auto) 1.2 % (0.0-2.0); Eosinophils # (auto) 0.1 10 ^3/uL (0-0.8); Eosinophils % (auto) 1.6 % (0.0-7.0); Hematocrit 42.7 % (41.0-53.0); Hemoglobin 13.9 g/dL (13.5-17.5); Lymphocytes # (auto) 2.5 10 ^3/uL (0.4-5.4); Lymphocytes % (auto) 34.2 % (10.0-50.0); Mean Corpuscular Hemoglobin 24.6 pg (28.0-32.0); Mean Corpuscular Hgb Conc. 32.5 g/dL (32.0-36.0); Mean Corpuscular Volume 75.6 fL (80.0-100.0); Monocytes # (auto) 0.5 10 ^3/uL (0-1.3); Monocytes % (auto) 6.8 % (0.0-12.0); Neutrophils # (auto) 4.1 10 ^3/uL (1.6-8.6); Neutrophils % (auto) 56.2 % (37.0-80.0); Nucleated Red Blood Cells % 0.1 %; Red Blood Cells 5.65 10^6/uL (4.5-5.90); Red Cell Distribution Width 14.3 % (11.8-14.3); White Blood Cell 7.3 10^3/uL (4.4-10.8)
[2022-07-18 03:22] LABS: Urine Blood Normal /uL (Negative); Urine Specific Gravity 1.024 (1.001-1.035)
[2022-07-18 03:30] LABS: BUN/Creatinine Ratio 14.6; Calcium 9.3 mg/dL (8.5-10.1); Potassium 4.5 mmol/L (3.5-5.1)
[2022-07-18 03:33] LABS: Bilirubin, Total 0.3 mg/dL (0.2-1.0); Total Protein 6.9 g/dL (6.4-8.2)
[2022-07-18] MEDS ORDERED: ONDANSETRON ODT 4 MG TAB PO ONE (04:15)
[2022-07-18] MEDS ORDERED: KETOROLAC TROMETH 60MG/2ML VIAL IM ONE (05:00)
[2022-07-18 05:11] VITALS: BP 122/75
== END 2022-07-18 05:13 | disposition home or self-care (01) ==
LOC: ER 00:38
DX: K52.9 Noninfective gastroenteritis and colitis, unspecified (principal); F17.210 Nicotine dependence, cigarettes, uncomplicated; F12.10 Cannabis abuse, uncomplicated; Z59.00 Homelessness unspecified
CPT/HCPCS: 36415; 80053; 81003; 85025; 96372; 99283; J1885; Q0162

== ENCOUNTER 2022-07-22 05:13 | Emergency (ER) | payer MEDICAID ==
[~2022-07-22] VITALS: Ht 180.3 cm; Wt 77.3 kg
[2022-07-22 05:57] VITALS: BP 128/84
[2022-07-22] MEDS ORDERED: KETOROLAC TROMETH 60MG/2ML VIAL IM ONE (06:30)
[2022-07-22 08:04] LABS: Basophils # (auto) 0.1 10 ^3/uL (0-0.2); Basophils % (auto) 0.9 % (0.0-2.0); Monocytes # (auto) 0.5 10 ^3/uL (0-1.3); White Blood Cell 7.9 10^3/uL (4.4-10.8)
[2022-07-22 08:07] LABS: Eosinophils # (auto) 0.1 10 ^3/uL (0-0.8); Eosinophils % (auto) 1.3 % (0.0-7.0); Hematocrit 44.1 % (41.0-53.0); Hemoglobin 14.8 g/dL (13.5-17.5); Lymphocytes # (auto) 2.4 10 ^3/uL (0.4-5.4); Lymphocytes % (auto) 30.3 % (10.0-50.0); Mean Corpuscular Hemoglobin 25.1 pg (28.0-32.0); Mean Corpuscular Hgb Conc. 33.5 g/dL (32.0-36.0); Mean Corpuscular Volume 74.8 fL (80.0-100.0); Monocytes % (auto) 6.2 % (0.0-12.0); Neutrophils # (auto) 4.8 10 ^3/uL (1.6-8.6); Neutrophils % (auto) 61.3 % (37.0-80.0); Nucleated Red Blood Cells % 0.3 %; Red Blood Cells 5.89 10^6/uL (4.5-5.90); Red Cell Distribution Width 14.1 % (11.8-14.3)
[2022-07-22 08:20] LABS: Albumin 4.2 g/dL (3.4-5.0); BUN/Creatinine Ratio 20.2; Calcium 9.5 mg/dL (8.5-10.1); Potassium 4.5 mmol/L (3.5-5.1)
[2022-07-22 08:22] LABS: Bilirubin, Total 0.7 mg/dL (0.2-1.0); Total Protein 7.6 g/dL (6.4-8.2)
== END 2022-07-22 14:50 | disposition left against medical advice (07) ==
LOC: ER 05:13
DX: R10.84 Generalized abdominal pain (principal); F17.210 Nicotine dependence, cigarettes, uncomplicated; F12.10 Cannabis abuse, uncomplicated; Z59.00 Homelessness unspecified; Z88.6 Allergy status to analgesic agent
CPT/HCPCS: 36415; 74176; 80053; 83690; 85025; 96372; 99284; J1885

== ENCOUNTER 2022-07-23 21:07 | Emergency (ER) | payer MEDICAID ==
[~2022-07-23] VITALS: Ht 180.3 cm; Wt 79.5 kg
[2022-07-23 22:00] LABS: Basophils # (auto) 0.1 10 ^3/uL (0-0.2); Basophils % (auto) 1.1 % (0.0-2.0); Eosinophils # (auto) 0.1 10 ^3/uL (0-0.8); Monocytes # (auto) 0.4 10 ^3/uL (0-1.3); Monocytes % (auto) 4.6 % (0.0-12.0); Nucleated Red Blood Cells % 0.2 %
[2022-07-23 22:02] LABS: Eosinophils % (auto) 1.4 % (0.0-7.0); Hematocrit 41.5 % (41.0-53.0); Hemoglobin 13.6 g/dL (13.5-17.5); Lymphocytes # (auto) 2.3 10 ^3/uL (0.4-5.4); Lymphocytes % (auto) 29.7 % (10.0-50.0); Mean Corpuscular Hgb Conc. 32.9 g/dL (32.0-36.0); Mean Corpuscular Volume 76.1 fL (80.0-100.0); Neutrophils % (auto) 63.2 % (37.0-80.0); Red Blood Cells 5.45 10^6/uL (4.5-5.90); Red Cell Distribution Width 14.4 % (11.8-14.3); White Blood Cell 7.8 10^3/uL (4.4-10.8)
[2022-07-23 22:12] VITALS: BP 119/69
[2022-07-23] MEDS ORDERED: ASPirin 81 mg TAB PO ONE (22:30)
[2022-07-23 23:33] LABS: Albumin 4.2 g/dL (3.4-5.0); BUN/Creatinine Ratio 17.5; Calcium 9.3 mg/dL (8.5-10.1); Potassium 4.6 mmol/L (3.5-5.1)
[2022-07-23 23:37] LABS: Bilirubin, Total 0.6 mg/dL (0.2-1.0); Total Protein 7.1 g/dL (6.4-8.2)
== END 2022-07-23 23:28 | disposition home or self-care (01) ==
LOC: ER 21:07
DX: R07.89 Other chest pain (principal); F15.10 Other stimulant abuse, uncomplicated; F17.210 Nicotine dependence, cigarettes, uncomplicated; F12.90 Cannabis use, unspecified, uncomplicated; Z79.899 Other long term (current) drug therapy; Z90.89 Acquired absence of other organs; Z59.00 Homelessness unspecified
CPT/HCPCS: 36415; 71046; 80053; 84484; 85025; 93005

== ENCOUNTER 2022-07-31 00:15 | Emergency (ER) | payer MEDICAID ==
[~2022-07-31] VITALS: Ht 180.3 cm; Wt 78.0 kg
[2022-07-31 01:13] LABS: Basophils # (auto) 0.1 10 ^3/uL (0-0.2); Lymphocytes # (auto) 2.3 10 ^3/uL (0.4-5.4); Mean Corpuscular Volume 75.2 fL (80.0-100.0); Neutrophils # (auto) 5.8 10 ^3/uL (1.6-8.6); Red Cell Distribution Width 14.3 % (11.8-14.3)
[2022-07-31 01:14] LABS: Basophils % (auto) 1.4 % (0.0-2.0); Eosinophils # (auto) 0 10 ^3/uL (0-0.8); Eosinophils % (auto) 0.6 % (0.0-7.0); Hematocrit 40.9 % (41.0-53.0); Hemoglobin 13.6 g/dL (13.5-17.5); Lymphocytes % (auto) 26.6 % (10.0-50.0); Mean Corpuscular Hgb Conc. 33.3 g/dL (32.0-36.0); Monocytes # (auto) 0.5 10 ^3/uL (0-1.3); Monocytes % (auto) 5.4 % (0.0-12.0); Red Blood Cells 5.43 10^6/uL (4.5-5.90); White Blood Cell 8.8 10^3/uL (4.4-10.8)
[2022-07-31 01:31] LABS: Albumin 4.2 g/dL (3.4-5.0); Calcium 9.5 mg/dL (8.5-10.1); Magnesium 2.4 mg/dL (1.6-2.6)
[2022-07-31 01:33] LABS: BUN/Creatinine Ratio 11.4
[2022-07-31 01:35] LABS: Bilirubin, Total 0.4 mg/dL (0.2-1.0); Total Protein 6.8 g/dL (6.4-8.2)
[2022-07-31 04:01] VITALS: BP 122/97
== END 2022-07-31 04:04 | disposition home or self-care (01) ==
LOC: ER 00:19
DX: R07.89 Other chest pain (principal); F15.10 Other stimulant abuse, uncomplicated; F12.10 Cannabis abuse, uncomplicated; F17.210 Nicotine dependence, cigarettes, uncomplicated; Z59.00 Homelessness unspecified; Z90.89 Acquired absence of other organs; Z79.1 Long term (current) use of non-steroidal anti-inflammatories (NSAID); Z79.2 Long term (current) use of antibiotics; Z79.899 Other long term (current) drug therapy
CPT/HCPCS: 36415; 71045; 80053; 83735; 84484; 85025; 93005

== ENCOUNTER 2022-08-01 03:21 | Emergency (ER) | payer MEDICAID ==
[~2022-08-01] VITALS: Ht 180.3 cm; Wt 79.1 kg
[2022-08-01] MEDS ORDERED: EPINEPHrine HCL 1 MG/1 ML AMP SC ONE (07:00)
[2022-08-01] MEDS ORDERED: KETOROLAC TROMETH 60MG/2ML VIAL IM ONE (07:00)
[2022-08-01 07:43] VITALS: BP 118/95
== END 2022-08-01 07:46 | disposition home or self-care (01) ==
LOC: ER 03:21
DX: G89.29 Other chronic pain (principal); M54.50 Low back pain, unspecified; F17.210 Nicotine dependence, cigarettes, uncomplicated; Z90.89 Acquired absence of other organs; Z59.00 Homelessness unspecified; Z79.1 Long term (current) use of non-steroidal anti-inflammatories (NSAID); Z79.2 Long term (current) use of antibiotics; Z79.899 Other long term (current) drug therapy
CPT/HCPCS: 96372; 99283; J1885

== ENCOUNTER 2022-08-02 05:41 | Emergency (ER) | payer MEDICAID ==
[~2022-08-02] VITALS: Ht 180.3 cm; Wt 79.1 kg
[2022-08-02] MEDS ORDERED: ACETAMINOPHEN 500 MG TAB PO ONE (07:45)
[2022-08-02 08:00] VITALS: BP 118/79
== END 2022-08-02 07:59 | disposition home or self-care (01) ==
LOC: ER 05:41
DX: G89.29 Other chronic pain (principal); M54.50 Low back pain, unspecified; F17.210 Nicotine dependence, cigarettes, uncomplicated; F12.10 Cannabis abuse, uncomplicated; F15.10 Other stimulant abuse, uncomplicated; X50.1XXA Overexertion from prolonged static or awkward postures, initial encounter; Y93.01 Activity, walking, marching and hiking; Y92.89 Other specified places as the place of occurrence of the external cause; Y99.8 Other external cause status

== ENCOUNTER 2022-08-02 23:19 | Emergency (ER) | payer MEDICAID ==
[~2022-08-02] VITALS: Ht 180.3 cm; Wt 78.8 kg
[2022-08-03 00:05] VITALS: BP 109/72
[2022-08-03] MEDS ORDERED: KETOROLAC TROMETH 60MG/2ML VIAL IM ONE (04:45)
== END 2022-08-03 04:56 | disposition home or self-care (01) ==
LOC: ER 23:19
DX: G89.29 Other chronic pain (principal); M54.50 Low back pain, unspecified; F17.210 Nicotine dependence, cigarettes, uncomplicated; Z59.00 Homelessness unspecified
CPT/HCPCS: 96372; 99283; J1885

== ENCOUNTER 2022-08-08 23:26 | Emergency (ER) | payer MEDICAID ==
[~2022-08-08] VITALS: Ht 182.9 cm; Wt 77.2 kg
[2022-08-09 01:24] VITALS: BP 116/70
[2022-08-09] MEDS ORDERED: KETOROLAC TROMETH 30 MG/ML 1ML VIAL IM ONE (01:45)
== END 2022-08-09 02:03 | disposition home or self-care (01) ==
LOC: ER 23:26
DX: G89.29 Other chronic pain (principal); M54.50 Low back pain, unspecified; F17.210 Nicotine dependence, cigarettes, uncomplicated; Z59.00 Homelessness unspecified; Z88.8 Allergy status to other drugs, medicaments and biological substances
CPT/HCPCS: 96372; 99283; J1885

== ENCOUNTER 2022-08-13 02:48 | Emergency (ER) | payer MEDICAID ==
[~2022-08-13] VITALS: Ht 180.3 cm; Wt 79.0 kg
[2022-08-13 04:00] VITALS: BP 112/75
[2022-08-13] MEDS ORDERED: IBUP800T27 PO (04:24)
[2022-08-13] MEDS ORDERED: IBUPROFEN 800 MG TAB PO ONE (04:30)
[2022-08-15] MEDS ORDERED: AZIT250T8 PO (03:05)
== END 2022-08-13 05:03 | disposition home or self-care (01) ==
LOC: ER 02:48
DX: G89.29 Other chronic pain (principal); M54.50 Low back pain, unspecified; F17.210 Nicotine dependence, cigarettes, uncomplicated; Z59.00 Homelessness unspecified

== ENCOUNTER 2022-08-14 06:43 | Emergency (ER) | payer MEDICAID ==
[~2022-08-14] VITALS: Ht 180.3 cm; Wt 80.0 kg
[2022-08-14 08:03] VITALS: BP 121/62
[2022-08-14] MEDS ORDERED: KETOROLAC TROMETH 60MG/2ML VIAL IM ONE (08:15)
[2022-08-15] MEDS ORDERED: AZIT250T8 PO (03:05)
== END 2022-08-14 08:34 | disposition home or self-care (01) ==
LOC: ER 06:43
DX: M54.59 Other low back pain (principal); F17.210 Nicotine dependence, cigarettes, uncomplicated; Z79.899 Other long term (current) drug therapy; Z90.89 Acquired absence of other organs; Z59.00 Homelessness unspecified
CPT/HCPCS: 96372; 99283; J1885

== ENCOUNTER → 2022-08-15 | Emergency (ER) | payer MEDICAID ==
[~2022-08-15] VITALS: Ht 182.9 cm; Wt 77.2 kg
[~2022-08-15] MED LIST changes: +ACET-1158 PO; +AZIT250T8 PO
[2022-08-15 01:08] LABS: Basophils # (auto) 0.1 10 ^3/uL (0-0.2); Eosinophils # (auto) 0.1 10 ^3/uL (0-0.8); Monocytes # (auto) 0.4 10 ^3/uL (0-1.3); Neutrophils # (auto) 3.3 10 ^3/uL (1.6-8.6); Nucleated Red Blood Cells % 0.1 %; Red Cell Distribution Width 14.4 % (11.8-14.3)
[2022-08-15 01:10] LABS: Eosinophils % (auto) 1.9 % (0.0-7.0); Hematocrit 40.6 % (41.0-53.0); Lymphocytes # (auto) 2.7 10 ^3/uL (0.4-5.4); Lymphocytes % (auto) 40.9 % (10.0-50.0); Mean Corpuscular Hemoglobin 24.6 pg (28.0-32.0); Mean Corpuscular Hgb Conc. 32.2 g/dL (32.0-36.0); Mean Corpuscular Volume 76.5 fL (80.0-100.0); Monocytes % (auto) 5.5 % (0.0-12.0); Neutrophils % (auto) 50.7 % (37.0-80.0); White Blood Cell 6.6 10^3/uL (4.4-10.8)
[2022-08-15 01:21] LABS: Albumin 3.7 g/dL (3.4-5.0); Calcium 8.9 mg/dL (8.5-10.1); Magnesium 2.1 mg/dL (1.6-2.6); Potassium 3.6 mmol/L (3.5-5.1)
[2022-08-15 01:24] LABS: BUN/Creatinine Ratio 17.6
[2022-08-15 01:27] LABS: Bilirubin, Total 0.4 mg/dL (0.2-1.0); Total Protein 6.2 g/dL (6.4-8.2)
[2022-08-15 01:39] LABS: INR 1.05 (0.9-1.15); Partial Thromboplastin Time 27.1 sec (24.6-33.4)
[2022-08-15] MEDS: AZITHROMYCIN 250 MG TAB PO ONE (03:33)
[2022-08-15 03:36] VITALS: BP 132/68
== END | disposition home or self-care (01) ==
LOC: ER 00:32
DX: R07.89 Other chest pain (principal); J06.9 Acute upper respiratory infection, unspecified; F41.9 Anxiety disorder, unspecified; F17.210 Nicotine dependence, cigarettes, uncomplicated; Z90.89 Acquired absence of other organs; Z79.899 Other long term (current) drug therapy; Z59.00 Homelessness unspecified
CPT/HCPCS: 36415; 80053; 83735; 83880; 84484; 85025; 85610; 85730; 93005

== ENCOUNTER 2022-08-16 01:43 | Emergency (ER) | payer MEDICAID ==
[~2022-08-16] VITALS: Ht 180.3 cm; Wt 80.2 kg
[~2022-08-16 01:43] MED LIST changes: -ACET-1158 PO
[2022-08-16 02:14] VITALS: BP 122/83
[2022-08-16] MEDS ORDERED: KETOROLAC TROMETH 30 MG/ML 1ML VIAL IM ONE (04:15)
[2022-08-16] MEDS ORDERED: KETOROLAC TROMETH 60MG/2ML VIAL IM ONE (04:15)
[2022-08-17] MEDS ORDERED: IBUP800T27 PO (07:13)
== END 2022-08-16 05:02 | disposition home or self-care (01) ==
LOC: ER 01:43
DX: G89.29 Other chronic pain (principal); M54.50 Low back pain, unspecified; F17.210 Nicotine dependence, cigarettes, uncomplicated; Z59.00 Homelessness unspecified
CPT/HCPCS: 96372; 99283; J1885

== ENCOUNTER 2022-08-17 03:57 | Emergency (ER) | payer MEDICAID ==
[~2022-08-17] VITALS: Ht 180.3 cm; Wt 79.0 kg
[2022-08-17] MEDS ORDERED: IBUP800T27 PO (07:13)
[2022-08-17] MEDS ORDERED: ACETAMINOPHEN 500 MG TAB PO ONE (07:15)
[2022-08-17 07:33] VITALS: BP 131/79
== END 2022-08-17 07:35 | disposition home or self-care (01) ==
LOC: ER 03:57
DX: G89.29 Other chronic pain (principal); M54.50 Low back pain, unspecified; F17.210 Nicotine dependence, cigarettes, uncomplicated; Z59.00 Homelessness unspecified; Z88.6 Allergy status to analgesic agent

== ENCOUNTER 2022-08-19 20:54 | Emergency (ER) | payer MEDICAID ==
[~2022-08-19] VITALS: Ht 180.3 cm; Wt 77.2 kg
[2022-08-20] MEDS ORDERED: ACET-1158 PO (01:17)
[2022-08-20 02:27] VITALS: BP 129/64
== END 2022-08-20 02:48 | disposition home or self-care (01) ==
LOC: ER 20:55
DX: M54.59 Other low back pain (principal); G89.29 Other chronic pain; F41.9 Anxiety disorder, unspecified; F32.9 Major depressive disorder, single episode, unspecified; F17.210 Nicotine dependence, cigarettes, uncomplicated; Z79.899 Other long term (current) drug therapy; Z90.89 Acquired absence of other organs; Z59.00 Homelessness unspecified

== ENCOUNTER 2022-08-23 00:52 | Emergency (ER) | payer MEDICAID ==
[~2022-08-23] VITALS: Ht 180.3 cm; Wt 77.0 kg
[~2022-08-23 00:52] MED LIST changes: +ACET-1158 PO
[2022-08-23 01:24] LABS: Basophils # (auto) 0.1 10 ^3/uL (0-0.2); Basophils % (auto) 0.9 % (0.0-2.0); Eosinophils # (auto) 0.1 10 ^3/uL (0-0.8); Hemoglobin 13.2 g/dL (13.5-17.5); Lymphocytes # (auto) 2.1 10 ^3/uL (0.4-5.4); Mean Corpuscular Hemoglobin 24.9 pg (28.0-32.0); Red Blood Cells 5.28 10^6/uL (4.5-5.90)
[2022-08-23 01:26] LABS: Eosinophils % (auto) 1.6 % (0.0-7.0); Hematocrit 40.2 % (41.0-53.0); Lymphocytes % (auto) 34.5 % (10.0-50.0); Mean Corpuscular Hgb Conc. 32.8 g/dL (32.0-36.0); Mean Corpuscular Volume 76.1 fL (80.0-100.0); Monocytes # (auto) 0.4 10 ^3/uL (0-1.3); Monocytes % (auto) 6.3 % (0.0-12.0); Neutrophils # (auto) 3.5 10 ^3/uL (1.6-8.6); Neutrophils % (auto) 56.7 % (37.0-80.0); Nucleated Red Blood Cells % 0.2 %; Red Cell Distribution Width 14.3 % (11.8-14.3); White Blood Cell 6.1 10^3/uL (4.4-10.8)
[2022-08-23 01:38] LABS: Albumin 3.8 g/dL (3.4-5.0); BUN/Creatinine Ratio 12.1; Calcium 8.7 mg/dL (8.5-10.1); Magnesium 2.2 mg/dL (1.6-2.6); Potassium 3.7 mmol/L (3.5-5.1)
[2022-08-23 01:40] LABS: INR 1.07 (0.9-1.15); Partial Thromboplastin Time 27.4 sec (24.6-33.4)
[2022-08-23 01:46] LABS: Bilirubin, Total 0.4 mg/dL (0.2-1.0); Total Protein 6.7 g/dL (6.4-8.2)
[2022-08-23 05:07] VITALS: BP 125/83
== END 2022-08-23 05:10 | disposition home or self-care (01) ==
LOC: ER 00:52
DX: R07.89 Other chest pain (principal); D64.9 Anemia, unspecified; F17.210 Nicotine dependence, cigarettes, uncomplicated; F12.10 Cannabis abuse, uncomplicated; F15.10 Other stimulant abuse, uncomplicated; Z59.00 Homelessness unspecified; Z88.6 Allergy status to analgesic agent; Z79.899 Other long term (current) drug therapy
CPT/HCPCS: 36415; 80053; 83735; 83880; 84484; 85025; 85610; 85730; 93005

== ENCOUNTER 2022-09-01 00:29 | Emergency (ER) | payer MEDICAID ==
[~2022-09-01] VITALS: Ht 180.3 cm; Wt 78.6 kg
[2022-09-01] MEDS ORDERED: KETOROLAC TROMETH 30 MG/ML 1ML VIAL IM ONE (10:00)
[2022-09-01 11:54] VITALS: BP 113/67
== END 2022-09-01 13:35 | disposition home or self-care (01) ==
LOC: ER 00:29
DX: G89.29 Other chronic pain (principal); M54.50 Low back pain, unspecified; F17.210 Nicotine dependence, cigarettes, uncomplicated; Z90.89 Acquired absence of other organs; Z59.00 Homelessness unspecified; Z79.1 Long term (current) use of non-steroidal anti-inflammatories (NSAID); Z79.2 Long term (current) use of antibiotics; Z79.899 Other long term (current) drug therapy
CPT/HCPCS: 72100; 96372; 99283; J1885

== ENCOUNTER 2022-09-19 21:50 | Emergency (ER) | payer MEDICAID ==
[~2022-09-19] VITALS: Ht 180.3 cm; Wt 80.9 kg
[2022-09-19 22:15] LABS: Eosinophils # (auto) 0.1 10 ^3/uL (0-0.8); Eosinophils % (auto) 1.8 % (0.0-7.0); Lymphocytes # (auto) 2.9 10 ^3/uL (0.4-5.4); Mean Corpuscular Volume 75.2 fL (80.0-100.0); Monocytes # (auto) 0.5 10 ^3/uL (0-1.3); Nucleated Red Blood Cells % 0.1 %; White Blood Cell 7.7 10^3/uL (4.4-10.8)
[2022-09-19 22:17] LABS: Basophils # (auto) 0.1 10 ^3/uL (0-0.2); Basophils % (auto) 1.2 % (0.0-2.0); Hematocrit 39.9 % (41.0-53.0); Hemoglobin 13.7 g/dL (13.5-17.5); Lymphocytes % (auto) 37.5 % (10.0-50.0); Mean Corpuscular Hemoglobin 25.7 pg (28.0-32.0); Mean Corpuscular Hgb Conc. 34.3 g/dL (32.0-36.0); Monocytes % (auto) 6.4 % (0.0-12.0); Neutrophils # (auto) 4.1 10 ^3/uL (1.6-8.6); Neutrophils % (auto) 53.1 % (37.0-80.0); Red Blood Cells 5.31 10^6/uL (4.5-5.90); Red Cell Distribution Width 14.8 % (11.8-14.3)
[2022-09-19 22:45] LABS: Albumin 3.8 g/dL (3.4-5.0); BUN/Creatinine Ratio 17.4; Bilirubin, Total 0.2 mg/dL (0.2-1.0); Calcium 8.4 mg/dL (8.5-10.1); Potassium 4.1 mmol/L (3.5-5.1); Total Protein 6.5 g/dL (6.4-8.2)
[2022-09-20 02:27] VITALS: BP 112/59
[2022-09-20] MEDS ORDERED: IBUPROFEN 600 MG TAB PO ONE (02:30)
== END 2022-09-20 02:28 | disposition home or self-care (01) ==
LOC: ER 21:50
DX: R07.89 Other chest pain (principal); F17.210 Nicotine dependence, cigarettes, uncomplicated; F12.10 Cannabis abuse, uncomplicated; F15.10 Other stimulant abuse, uncomplicated; Z59.00 Homelessness unspecified
CPT/HCPCS: 36415; 80053; 84484; 85025; 93005

== ENCOUNTER 2022-10-03 08:25 | Emergency (ER) | payer MEDICAID ==
[~2022-10-03] VITALS: Ht 180.3 cm; Wt 80.0 kg
[2022-10-03 08:53] LABS: Basophils # (auto) 0.1 10 ^3/uL (0-0.2); Eosinophils # (auto) 0.2 10 ^3/uL (0-0.8); Hemoglobin 14.2 g/dL (13.5-17.5); Lymphocytes # (auto) 2.4 10 ^3/uL (0.4-5.4); Monocytes # (auto) 0.6 10 ^3/uL (0-1.3); Nucleated Red Blood Cells % 0.2 %
[2022-10-03 08:55] LABS: Basophils % (auto) 1.2 % (0.0-2.0); Eosinophils % (auto) 2.6 % (0.0-7.0); Hematocrit 42.4 % (41.0-53.0); Lymphocytes % (auto) 28.4 % (10.0-50.0); Mean Corpuscular Hemoglobin 25.4 pg (28.0-32.0); Mean Corpuscular Hgb Conc. 33.5 g/dL (32.0-36.0); Monocytes % (auto) 6.8 % (0.0-12.0); Neutrophils # (auto) 5.1 10 ^3/uL (1.6-8.6); Red Blood Cells 5.59 10^6/uL (4.5-5.90); Red Cell Distribution Width 14.7 % (11.8-14.3); White Blood Cell 8.4 10^3/uL (4.4-10.8)
[2022-10-03 09:08] LABS: INR 1.06 (0.9-1.15); Partial Thromboplastin Time 29.1 sec (24.6-33.4)
[2022-10-03 09:28] LABS: Albumin 4.2 g/dL (3.4-5.0); BUN/Creatinine Ratio 17.9; Bilirubin, Total 0.4 mg/dL (0.2-1.0); Calcium 8.8 mg/dL (8.5-10.1); Magnesium 2.2 mg/dL (1.6-2.6); Potassium 4.3 mmol/L (3.5-5.1); Total Protein 6.7 g/dL (6.4-8.2)
[2022-10-03 10:47] LABS: Urine Bacteria NONE SEEN /hpf (None Seen); Urine Blood Negative /uL (Negative); Urine Mucus FEW (None Seen); Urine Specific Gravity 1.027 (1.001-1.035); Urine WBC 1 /hpf (0 - 3)
[2022-10-03 11:14] LABS: Alcohol, Urine < 3.0 mg/dL (0-10); Amphetamine Screen, Urine POSITIVE (NEGATIVE); Barbiturate Scree,Urine NEGATIVE (NEGATIVE); Benzodiazephine Screen, Urine NEGATIVE (NEGATIVE); Cannabinoid Screen, Urine NEGATIVE (NEGATIVE); Cocaine Screen, Urine NEGATIVE (NEGATIVE); Opiate Scree,Urine NEGATIVE (NEGATIVE); Phencyclidine Screen, Urine NEGATIVE (NEGATIVE)
[2022-10-03] MEDS ORDERED: OME20T PO (12:19)
[2022-10-03] MEDS ORDERED: MAALOX PLUS or MAALOX 30 ML PO ONE (12:30)
[2022-10-03] MEDS ORDERED: LIDOCAINE VISCOUS 2% 15ML UD PO ONE (12:30)
[2022-10-03] MEDS ORDERED: FAMOTIDINE 20 MG TAB PO ONE (12:30)
[2022-10-03 13:15] VITALS: BP 120/73
== END 2022-10-03 13:16 | disposition home or self-care (01) ==
LOC: ER 08:25
DX: K21.9 Gastro-esophageal reflux disease without esophagitis (principal); R07.89 Other chest pain; F12.10 Cannabis abuse, uncomplicated; Z79.899 Other long term (current) drug therapy
CPT/HCPCS: 36415; 71045; 80053; 80307; 81001; 83735; 83880; 84484; 85025; 85610; 85730; 93005

== ENCOUNTER 2022-10-10 02:24 | Emergency (ER) | payer MEDICAID ==
[~2022-10-10] VITALS: Ht 182.9 cm; Wt 63.6 kg
[~2022-10-10 02:24] MED LIST changes: +OME20T PO
[2022-10-10] MEDS ORDERED: KETOROLAC TROMETH 30 MG/ML 1ML VIAL IM ONE (02:45)
[2022-10-10] MEDS ORDERED: methylPREDNISolone SOD SUCC 125 MG/2 ML VL IM ONE (02:45)
[2022-10-10 05:57] VITALS: BP 113/69
== END 2022-10-10 06:02 | disposition home or self-care (01) ==
LOC: ER 02:24
DX: S39.012A Strain of muscle, fascia and tendon of lower back, initial encounter (principal); G89.4 Chronic pain syndrome; Z90.89 Acquired absence of other organs; Z79.899 Other long term (current) drug therapy; Z79.1 Long term (current) use of non-steroidal anti-inflammatories (NSAID); Z79.2 Long term (current) use of antibiotics; X58.XXXA Exposure to other specified factors, initial encounter; Y93.89 Activity, other specified; Y92.89 Other specified places as the place of occurrence of the external cause; Y99.8 Other external cause status
CPT/HCPCS: 96372; 99284; J1885; J2930

== ENCOUNTER 2022-10-14 05:37 | Emergency (ER) | payer MEDICAID ==
[~2022-10-14] VITALS: Ht 180.3 cm; Wt 79.5 kg
[2022-10-14] MEDS ORDERED: AMOX-277 PO (05:43)
[2022-10-14 05:46] VITALS: BP 101/67
== END 2022-10-14 05:57 | disposition home or self-care (01) ==
LOC: ER 05:37
DX: J06.9 Acute upper respiratory infection, unspecified (principal); Z90.89 Acquired absence of other organs; Z79.1 Long term (current) use of non-steroidal anti-inflammatories (NSAID); Z79.2 Long term (current) use of antibiotics; Z79.899 Other long term (current) drug therapy

== ENCOUNTER 2022-10-22 00:46 | Emergency (ER) | payer MEDICAID ==
[~2022-10-22] VITALS: Ht 180.3 cm; Wt 79.0 kg
[~2022-10-22 00:46] MED LIST changes: +AMOX-277 PO
[2022-10-22 01:30] VITALS: BP 142/84
[2022-10-23] MEDS ORDERED: NAP500T PO (05:28)
[2022-10-23] MEDS ORDERED: CYCL-837 PO (05:28)
== END 2022-10-22 04:22 | disposition home or self-care (01) ==
LOC: ER 00:46
DX: S39.012A Strain of muscle, fascia and tendon of lower back, initial encounter (principal); G89.29 Other chronic pain; Z90.89 Acquired absence of other organs; Z59.00 Homelessness unspecified; Z79.1 Long term (current) use of non-steroidal anti-inflammatories (NSAID); Z79.2 Long term (current) use of antibiotics; Z79.899 Other long term (current) drug therapy; X58.XXXA Exposure to other specified factors, initial encounter; Y93.89 Activity, other specified; Y92.89 Other specified places as the place of occurrence of the external cause; Y99.8 Other external cause status

== ENCOUNTER 2022-10-23 04:49 | Emergency (ER) | payer MEDICAID ==
[~2022-10-23] VITALS: Ht 180.3 cm; Wt 74.5 kg
[2022-10-23] MEDS ORDERED: NAP500T PO (05:28)
[2022-10-23] MEDS ORDERED: CYCL-837 PO (05:28)
[2022-10-23 05:49] VITALS: BP 122/81
== END 2022-10-23 06:03 | disposition home or self-care (01) ==
LOC: ER 04:49
DX: S39.012A Strain of muscle, fascia and tendon of lower back, initial encounter (principal); F17.210 Nicotine dependence, cigarettes, uncomplicated; Z59.00 Homelessness unspecified; Z88.6 Allergy status to analgesic agent; X58.XXXA Exposure to other specified factors, initial encounter; Y93.89 Activity, other specified; Y92.89 Other specified places as the place of occurrence of the external cause; Y99.8 Other external cause status

== ENCOUNTER 2022-10-24 04:43 | Emergency (ER) | payer MEDICAID ==
[~2022-10-24] VITALS: Ht 180.3 cm; Wt 77.4 kg
[~2022-10-24 04:43] MED LIST changes: +NAP500T PO
[2022-10-24 04:53] VITALS: BP 128/77
[2022-10-24] MEDS ORDERED: KETOROLAC TROMETH 30 MG/ML 1ML VIAL IM ONE (05:30)
== END 2022-10-24 05:43 | disposition home or self-care (01) ==
LOC: ER 04:43
DX: G89.29 Other chronic pain (principal); M54.50 Low back pain, unspecified; F17.210 Nicotine dependence, cigarettes, uncomplicated; Z88.1 Allergy status to other antibiotic agents; Z88.6 Allergy status to analgesic agent; Z59.00 Homelessness unspecified
CPT/HCPCS: 96372; 99283; J1885

== ENCOUNTER 2022-10-26 02:34 | Emergency (ER) | payer MEDICAID ==
[~2022-10-26] VITALS: Ht 182.9 cm; Wt 77.2 kg
[2022-10-26 02:38] VITALS: BP 125/72
[2022-10-26 02:46] LABS: Basophils # (auto) 0.1 10 ^3/uL (0-0.2); Eosinophils # (auto) 0.1 10 ^3/uL (0-0.8); Monocytes # (auto) 0.5 10 ^3/uL (0-1.3)
[2022-10-26 02:47] LABS: Basophils % (auto) 0.9 % (0.0-2.0); Eosinophils % (auto) 0.9 % (0.0-7.0); Hematocrit 40.6 % (41.0-53.0); Hemoglobin 13.3 g/dL (13.5-17.5); Lymphocytes # (auto) 2.1 10 ^3/uL (0.4-5.4); Lymphocytes % (auto) 23.4 % (10.0-50.0); Mean Corpuscular Hemoglobin 24.8 pg (28.0-32.0); Mean Corpuscular Hgb Conc. 32.7 g/dL (32.0-36.0); Mean Corpuscular Volume 75.9 fL (80.0-100.0); Neutrophils # (auto) 6.3 10 ^3/uL (1.6-8.6); Neutrophils % (auto) 69.8 % (37.0-80.0); Nucleated Red Blood Cells % 0.1 %; Red Blood Cells 5.35 10^6/uL (4.5-5.90); Red Cell Distribution Width 14.7 % (11.8-14.3)
[2022-10-26 03:03] LABS: Albumin 3.4 g/dL (3.4-5.0); BUN/Creatinine Ratio 17.7 (10.0-20.0); Calcium 8.9 mg/dL (8.5-10.1); Potassium 3.7 mmol/L (3.5-5.1)
[2022-10-26 03:06] LABS: Bilirubin, Total 0.3 mg/dL (0.2-1.0); Total Protein 6.6 g/dL (6.4-8.2)
[2022-10-26 03:13] LABS: INR 1.06 (0.9-1.15); Partial Thromboplastin Time 27.1 sec (24.6-33.4)
== END 2022-10-26 06:37 | disposition left against medical advice (07) ==
LOC: ER 02:34
DX: R07.89 Other chest pain (principal); Z53.21 Procedure and treatment not carried out due to patient leaving prior to being seen by health care provider
CPT/HCPCS: 36415; 80053; 83735; 83880; 84484; 85025; 85610; 85730; 93005

== ENCOUNTER 2022-10-28 02:13 | Emergency (ER) | payer MEDICAID ==
[~2022-10-28] VITALS: Ht 180.3 cm; Wt 77.5 kg
[2022-10-28 03:04] VITALS: BP 137/88
== END 2022-10-28 03:06 | disposition home or self-care (01) ==
LOC: ER 02:13
DX: G89.29 Other chronic pain (principal); M54.50 Low back pain, unspecified; F17.210 Nicotine dependence, cigarettes, uncomplicated; Z59.00 Homelessness unspecified; Z88.1 Allergy status to other antibiotic agents; Z88.6 Allergy status to analgesic agent

== ENCOUNTER 2022-11-01 22:38 | Emergency (ER) | payer MEDICAID ==
[~2022-11-01] VITALS: Ht 180.3 cm; Wt 72.0 kg
[2022-11-02 02:09] VITALS: BP 112/56
[2022-11-02] MEDS ORDERED: KETOROLAC TROMETH 30 MG/ML 1ML VIAL IM ONE (03:00)
== END 2022-11-02 03:09 | disposition home or self-care (01) ==
LOC: ER 22:38
DX: G89.29 Other chronic pain (principal); M54.50 Low back pain, unspecified; F17.210 Nicotine dependence, cigarettes, uncomplicated
CPT/HCPCS: 96372; 99283; J1885

== ENCOUNTER 2022-11-08 05:25 | Emergency (ER) | payer MEDICAID ==
[~2022-11-08] VITALS: Ht 180.3 cm; Wt 77.2 kg
[2022-11-08 06:33] VITALS: BP 101/73
[2022-11-08] MEDS ORDERED: LORazepam 0.5 MG TAB PO ONE (06:45)
== END 2022-11-08 07:06 | disposition home or self-care (01) ==
LOC: ER 05:25
DX: F41.1 Generalized anxiety disorder (principal); F31.9 Bipolar disorder, unspecified; F17.210 Nicotine dependence, cigarettes, uncomplicated

== ENCOUNTER 2022-11-18 06:10 | Emergency (ER) | payer MEDICAID ==
[~2022-11-18] VITALS: Ht 180.3 cm; Wt 80.0 kg
[2022-11-18 06:10] VITALS: BP 119/53
[2022-11-18] MEDS ORDERED: IBUPROFEN 600 MG TAB PO ONE (08:45)
== END 2022-11-18 09:10 | disposition home or self-care (01) ==
LOC: ER 06:10
DX: G89.29 Other chronic pain (principal); M54.50 Low back pain, unspecified; F17.210 Nicotine dependence, cigarettes, uncomplicated; F15.10 Other stimulant abuse, uncomplicated; Z59.00 Homelessness unspecified; Z88.1 Allergy status to other antibiotic agents

== ENCOUNTER 2022-11-21 04:53 | Emergency (ER) | payer MEDICAID ==
[~2022-11-21] VITALS: Ht 182.9 cm; Wt 68.1 kg
[2022-11-21 05:03] VITALS: BP 116/74
[2022-11-21] MEDS ORDERED: IBUPROFEN 800 MG TAB PO ONE (05:15)
== END 2022-11-21 05:20 | disposition home or self-care (01) ==
LOC: ER 04:53
DX: G89.29 Other chronic pain (principal); M54.50 Low back pain, unspecified; F17.210 Nicotine dependence, cigarettes, uncomplicated; F41.9 Anxiety disorder, unspecified

== ENCOUNTER 2022-11-26 04:15 | Emergency (ER) | payer MEDICAID ==
[~2022-11-26] VITALS: Ht 180.3 cm; Wt 175.0 kg
[2022-11-26 04:15] VITALS: BP 117/69
[2022-11-26] MEDS ORDERED: IBUPROFEN 800 MG TAB PO ONE (04:30)
== END 2022-11-26 04:39 | disposition home or self-care (01) ==
LOC: ER 04:15
DX: G89.29 Other chronic pain (principal); M54.50 Low back pain, unspecified; F17.210 Nicotine dependence, cigarettes, uncomplicated; Z59.00 Homelessness unspecified; Z88.1 Allergy status to other antibiotic agents; Z88.6 Allergy status to analgesic agent

== ENCOUNTER 2022-11-30 03:51 | Emergency (ER) | payer MEDICAID ==
[~2022-11-30] VITALS: Ht 180.3 cm; Wt 77.8 kg
[2022-11-30 04:00] VITALS: BP 128/80
[2022-11-30] MEDS ORDERED: KETOROLAC TROMETH 30 MG/ML 1ML VIAL IM ONE (05:15)
== END 2022-11-30 05:22 | disposition home or self-care (01) ==
LOC: ER 03:51
DX: G89.29 Other chronic pain (principal); M54.50 Low back pain, unspecified; F17.210 Nicotine dependence, cigarettes, uncomplicated; F12.10 Cannabis abuse, uncomplicated; Z59.00 Homelessness unspecified; Z88.6 Allergy status to analgesic agent; Z88.1 Allergy status to other antibiotic agents
CPT/HCPCS: 96372; 99283; J1885

== ENCOUNTER 2022-12-02 02:50 | Emergency (ER) | payer MEDICAID ==
[~2022-12-02] VITALS: Ht 182.9 cm; Wt 73.0 kg
[2022-12-02 02:53] VITALS: BP 109/75
[2022-12-02] MEDS: IBUPROFEN 400 MG TAB PO ONE ×2 (04:48→04:59)
== END 2022-12-02 04:48 | disposition home or self-care (01) ==
LOC: ER 02:50
DX: S39.012A Strain of muscle, fascia and tendon of lower back, initial encounter (principal); F17.210 Nicotine dependence, cigarettes, uncomplicated; Z88.1 Allergy status to other antibiotic agents; Z88.6 Allergy status to analgesic agent; W51.XXXA Accidental striking against or bumped into by another person, initial encounter; Y93.89 Activity, other specified; Y92.89 Other specified places as the place of occurrence of the external cause; Y99.8 Other external cause status

== ENCOUNTER 2022-12-08 05:32 | Emergency (ER) | payer MEDICAID ==
[~2022-12-08] VITALS: Ht 180.3 cm; Wt 76.8 kg
[2022-12-08 08:25] VITALS: BP 94/52
[2022-12-08] MEDS ORDERED: KETOROLAC TROMETH 30 MG/ML 1ML VIAL IM ONE (08:45)
== END 2022-12-08 11:14 | disposition home or self-care (01) ==
LOC: ER 05:32
DX: S39.012A Strain of muscle, fascia and tendon of lower back, initial encounter (principal); F17.210 Nicotine dependence, cigarettes, uncomplicated; Z59.00 Homelessness unspecified; Z90.89 Acquired absence of other organs; X50.9XXA Other and unspecified overexertion or strenuous movements or postures, initial encounter; Y93.72 Activity, wrestling; Y92.89 Other specified places as the place of occurrence of the external cause; Y99.8 Other external cause status
CPT/HCPCS: 72100; 96372; 99283; J1885

== ENCOUNTER 2022-12-11 03:31 | Emergency (ER) | payer MEDICAID ==
[~2022-12-11] VITALS: Ht 180.3 cm; Wt 78.6 kg
[2022-12-11 04:03] VITALS: BP 102/53
[2022-12-11] MEDS: IBUPROFEN 800 MG TAB PO ONE (05:21)
[2022-12-12] MEDS ORDERED: PENI500T2 PO (07:07)
[2022-12-12] MEDS ORDERED: METR500T PO (07:07)
== END 2022-12-11 05:25 | disposition home or self-care (01) ==
LOC: ER 03:31
DX: G89.29 Other chronic pain (principal); M54.59 Other low back pain; F17.210 Nicotine dependence, cigarettes, uncomplicated; Z59.00 Homelessness unspecified

== ENCOUNTER 2022-12-12 03:30 | Emergency (ER) | payer MEDICAID ==
[~2022-12-12] VITALS: Ht 182.9 cm; Wt 81.8 kg
[2022-12-12 06:40] VITALS: BP 133/93
[2022-12-12] MEDS ORDERED: IBUPROFEN 800 MG TAB PO ONE (07:00)
[2022-12-12] MEDS ORDERED: cefTRIAXone W LIDOCAINE 1 GM IM IM ONE (07:00)
[2022-12-12] MEDS ORDERED: methylPREDNISolone SOD SUCC 125 MG/2 ML VL IM ONE (07:00)
[2022-12-12] MEDS ORDERED: PENI500T2 PO (07:07)
[2022-12-12] MEDS ORDERED: METR500T PO (07:07)
[2022-12-12] MEDS ORDERED: cefTRIAXone SOD 1,000 MG VL IM ONE (08:15)
== END 2022-12-12 08:17 | disposition home or self-care (01) ==
LOC: ER 03:30
DX: K04.7 Periapical abscess without sinus (principal); F17.210 Nicotine dependence, cigarettes, uncomplicated; R51.9 Headache, unspecified; Z59.00 Homelessness unspecified; Z88.1 Allergy status to other antibiotic agents; Z88.6 Allergy status to analgesic agent; Z88.0 Allergy status to penicillin
CPT/HCPCS: 70450; 96372; 99285; J0696; J2930

== ENCOUNTER 2023-01-08 00:52 | Emergency (ER) | payer MEDICAID ==
[~2023-01-08] VITALS: Ht 180.3 cm; Wt 77.0 kg
[~2023-01-08 00:52] MED LIST changes: -ACET-1158 PO; +ACET500T58 PO; -AMOX-277 PO; +AMOX875T4 PO; +AZIT-81 PO; -AZIT250T8 PO; +IBUP-1456 PO; -IBUP800T27 PO; +METH-1182 PO; -METH750T22 PO; +METR500T PO; +PENI500T2 PO
[2023-01-08 00:53] VITALS: BP 121/85
[2023-01-08] MEDS ORDERED: KETOROLAC TROMETH 60MG/2ML VIAL IM ONE (04:45)
== END 2023-01-08 05:25 | disposition home or self-care (01) ==
LOC: ER 00:52
DX: G89.29 Other chronic pain (principal); M54.59 Other low back pain; F17.210 Nicotine dependence, cigarettes, uncomplicated; Z79.899 Other long term (current) drug therapy; Z90.89 Acquired absence of other organs
CPT/HCPCS: 96372; 99283; J1885

== ENCOUNTER 2023-01-10 05:51 | Emergency (ER) | payer MEDICAID ==
[~2023-01-10] VITALS: Ht 180.3 cm; Wt 79.5 kg
[2023-01-10 06:42] LABS: Basophils # (auto) 0.1 10 ^3/uL (0-0.2); Basophils % (auto) 1.1 % (0.0-2.0); Eosinophils # (auto) 0.1 10 ^3/uL (0-0.8); Lymphocytes # (auto) 1.7 10 ^3/uL (0.4-5.4); Monocytes # (auto) 0.4 10 ^3/uL (0-1.3); Nucleated Red Blood Cells % 0.1 %; White Blood Cell 6.6 10^3/uL (4.4-10.8)
[2023-01-10 06:44] LABS: Eosinophils % (auto) 1.1 % (0.0-7.0); Hematocrit 39.9 % (41.0-53.0); Hemoglobin 13.5 g/dL (13.5-17.5); Lymphocytes % (auto) 26.3 % (10.0-50.0); Mean Corpuscular Hemoglobin 25.2 pg (28.0-32.0); Mean Corpuscular Hgb Conc. 33.8 g/dL (32.0-36.0); Mean Corpuscular Volume 74.6 fL (80.0-100.0); Monocytes % (auto) 5.9 % (0.0-12.0); Neutrophils # (auto) 4.3 10 ^3/uL (1.6-8.6); Neutrophils % (auto) 65.6 % (37.0-80.0); Red Blood Cells 5.35 10^6/uL (4.5-5.90); Red Cell Distribution Width 14.7 % (11.8-14.3)
[2023-01-10 06:57] LABS: Albumin 3.7 g/dL (3.4-5.0); Calcium 8.5 mg/dL (8.5-10.1); Potassium 4.2 mmol/L (3.5-5.1)
[2023-01-10 07:00] LABS: Bilirubin, Total 0.4 mg/dL (0.2-1.0); Total Protein 6.6 g/dL (6.4-8.2)
[2023-01-10] MEDS ORDERED: LEVO500T91 PO (09:06)
[2023-01-10 09:24] VITALS: BP 117/73
== END 2023-01-10 11:30 | disposition home or self-care (01) ==
LOC: ER 05:51
DX: J06.9 Acute upper respiratory infection, unspecified (principal); R06.02 Shortness of breath; F17.210 Nicotine dependence, cigarettes, uncomplicated; Z59.00 Homelessness unspecified; Z88.1 Allergy status to other antibiotic agents; Z88.0 Allergy status to penicillin
CPT/HCPCS: 36415; 71046; 80053; 84484; 85025; 93005

== ENCOUNTER 2023-01-24 00:24 | Emergency (ER) | payer MEDICAID ==
[~2023-01-24] VITALS: Ht 180.3 cm; Wt 72.8 kg
[~2023-01-24 00:24] MED LIST changes: +LEVO500T91 PO
[2023-01-24] MEDS ORDERED: KETOROLAC TROMETH 60MG/2ML VIAL IM ONE (00:45)
[2023-01-24] MEDS ORDERED: HYDROcodone-ACET 10/325MG TAB PO ONE (00:45)
[2023-01-24] MEDS ORDERED: HYDR-4902 PO (01:49)
[2023-01-24] MEDS ORDERED: IBUP-1455 PO (01:49)
[2023-01-24 03:55] VITALS: BP 109/69
== END 2023-01-24 04:15 | disposition home or self-care (01) ==
LOC: ER 00:26
DX: S39.012A Strain of muscle, fascia and tendon of lower back, initial encounter (principal); F17.210 Nicotine dependence, cigarettes, uncomplicated; Z88.1 Allergy status to other antibiotic agents; Z88.6 Allergy status to analgesic agent; Z59.00 Homelessness unspecified; X50.1XXA Overexertion from prolonged static or awkward postures, initial encounter; Y93.89 Activity, other specified; Y92.89 Other specified places as the place of occurrence of the external cause; Y99.8 Other external cause status
CPT/HCPCS: 72100; 96372; 99283; J1885

== ENCOUNTER 2023-01-31 00:03 | Emergency (ER) | payer MEDICAID ==
[~2023-01-31] VITALS: Ht 180.3 cm; Wt 72.5 kg
[~2023-01-31 00:03] MED LIST changes: +HYDR-4902 PO; +IBUP-1455 PO
[2023-01-31] MEDS ORDERED: AUG875T PO (03:31)
[2023-01-31 03:44] VITALS: BP 110/68
[2023-01-31] MEDS ORDERED: KETOROLAC TROMETH 30 MG/ML 1ML VIAL IM ONE (03:45)
== END 2023-01-31 03:48 | disposition home or self-care (01) ==
LOC: ER 00:03
DX: K04.7 Periapical abscess without sinus (principal); F17.210 Nicotine dependence, cigarettes, uncomplicated; Z59.00 Homelessness unspecified
CPT/HCPCS: 96372; 99283; J1885

== ENCOUNTER 2023-02-02 11:24 | Emergency (ER) | payer MEDICAID ==
[~2023-02-02] VITALS: Ht 180.3 cm; Wt 78.1 kg
[~2023-02-02 11:24] MED LIST changes: +AUG875T PO
[2023-02-02 12:38] VITALS: BP 102/72
[2023-02-02] MEDS ORDERED: KETOROLAC TROMETH 30 MG/ML 1ML VIAL IV ONE (13:15)
[2023-02-02] MEDS ORDERED: ACETAMINOPHEN 500 MG TAB PO ONE (13:15)
[2023-02-02] MEDS ORDERED: cefTRIAXone SOD 1,000 MG VL IM ONE (13:15)
[2023-02-02] MEDS ORDERED: AMOX500T3 PO (13:18)
[2023-02-02] MEDS ORDERED: ACET-1304 PO (13:18)
== END 2023-02-02 14:00 | disposition home or self-care (01) ==
LOC: ER 11:24
DX: K08.89 Other specified disorders of teeth and supporting structures (principal); F17.210 Nicotine dependence, cigarettes, uncomplicated; Z59.00 Homelessness unspecified
CPT/HCPCS: 96372; 96374; 99284; J0696; J1885

== ENCOUNTER 2023-03-03 00:13 | Emergency (ER) | payer MEDICAID ==
[~2023-03-03] VITALS: Ht 182.9 cm; Wt 77.2 kg
[~2023-03-03 00:13] MED LIST changes: +ACET-1304 PO; +AMOX500T3 PO
[2023-03-03 00:21] VITALS: BP 118/83; PULSE 92; RESP 16; O2SAT 98
[2023-03-03] MEDS ORDERED: DexAMETHasone SOD PHOS 10MG/1ML VIAL INJ IM ONE (01:45)
[2023-03-03] MEDS ORDERED: KETOROLAC TROMETH 60MG/2ML VIAL IM ONE (01:45)
== END 2023-03-03 03:20 | disposition home or self-care (01) ==
LOC: ER 00:13
DX: G89.29 Other chronic pain (principal); M54.50 Low back pain, unspecified; F17.210 Nicotine dependence, cigarettes, uncomplicated; Z76.0 Encounter for issue of repeat prescription; Z59.00 Homelessness unspecified

== ENCOUNTER 2023-03-10 23:37 | Emergency (ER) | payer MEDICAID ==
[~2023-03-10] VITALS: Ht 180.3 cm; Wt 77.0 kg
[2023-03-11 00:57] VITALS: BP 108/67
[2023-03-11] MEDS ORDERED: HYDROcodone-ACET 5/325MG TAB PO ONE (02:45)
[2023-03-11] MEDS ORDERED: DexAMETHasone SOD PHOS 10MG/1ML VIAL INJ IM ONE (02:45)
[2023-03-11] MEDS ORDERED: CYCL-839 PO (02:46)
[2023-03-11] MEDS ORDERED: IBUP1TAB5 PO (02:46)
[2023-03-11] MEDS ORDERED: KETOROLAC TROMETH 60MG/2ML VIAL IM ONE (04:45)
[2023-03-11 05:06] VITALS: PULSE 87; RESP 16; TEMP 97.9; O2SAT 96
== END 2023-03-11 06:47 | disposition home or self-care (01) ==
LOC: ER 23:44
DX: G89.29 Other chronic pain (principal); M54.50 Low back pain, unspecified; F17.210 Nicotine dependence, cigarettes, uncomplicated; Z59.00 Homelessness unspecified
CPT/HCPCS: 96372; 99283; J1885

== ENCOUNTER 2023-03-29 02:58 | Emergency (ER) | payer MEDICAID ==
[~2023-03-29] VITALS: Ht 180.3 cm; Wt 81.8 kg
[~2023-03-29 02:58] MED LIST changes: +CYCL-839 PO; +IBUP1TAB5 PO
[2023-03-29 03:17] VITALS: BP 116/80; PULSE 78; RESP 16; TEMP 98.7; O2SAT 99
[2023-03-29] MEDS ORDERED: IBUPROFEN 800 MG TAB PO ONE (03:45)
== END 2023-03-29 04:01 | disposition home or self-care (01) ==
LOC: ER 02:58
DX: M54.50 Low back pain, unspecified (principal); G89.29 Other chronic pain; F17.210 Nicotine dependence, cigarettes, uncomplicated; Z90.89 Acquired absence of other organs; Z79.1 Long term (current) use of non-steroidal anti-inflammatories (NSAID); Z79.899 Other long term (current) drug therapy

== ENCOUNTER 2023-04-08 05:02 | Emergency (ER) | payer MEDICAID ==
[~2023-04-08] VITALS: Ht 180.3 cm; Wt 79.0 kg
[2023-04-08 05:29] VITALS: BP 122/71; PULSE 84; RESP 17; TEMP 98
[2023-04-08 06:51] VITALS: O2SAT 100
[2023-04-08] MEDS ORDERED: KETOROLAC TROMETH 30 MG/ML 1ML VIAL IM ONE (07:30)
[2023-04-08] MEDS ORDERED: IBUP-1454 PO (08:01)
[2023-04-08] MEDS ORDERED: METH-1181 PO (08:01)
== END 2023-04-08 08:25 | disposition home or self-care (01) ==
LOC: ER 05:02
DX: S39.012A Strain of muscle, fascia and tendon of lower back, initial encounter (principal); F17.210 Nicotine dependence, cigarettes, uncomplicated; Z90.89 Acquired absence of other organs; Z79.1 Long term (current) use of non-steroidal anti-inflammatories (NSAID); Z79.899 Other long term (current) drug therapy; X58.XXXA Exposure to other specified factors, initial encounter; Y93.89 Activity, other specified; Y92.89 Other specified places as the place of occurrence of the external cause; Y99.8 Other external cause status
CPT/HCPCS: 96372; 99283; J1885

== ENCOUNTER 2023-04-13 01:43 | Emergency (ER) | payer MEDICAID ==
[~2023-04-13] VITALS: Ht 180.3 cm; Wt 73.5 kg
[~2023-04-13 01:43] MED LIST changes: +IBUP-1454 PO; +METH-1181 PO
[2023-04-13 02:03] VITALS: BP 124/91; PULSE 92; RESP 18; TEMP 97.6; O2SAT 97
[2023-04-13] MEDS ORDERED: MUPI2OIN2 NAS (02:37)
[2023-04-13] MEDS ORDERED: BACDST PO (02:37)
[2023-04-13] MEDS ORDERED: IBUPROFEN 800 MG TAB PO ONE ×2 (03:00)
== END 2023-04-13 02:58 | disposition home or self-care (01) ==
LOC: ER 01:43
DX: J34.0 Abscess, furuncle and carbuncle of nose (principal); F17.210 Nicotine dependence, cigarettes, uncomplicated; Z90.89 Acquired absence of other organs; Z79.1 Long term (current) use of non-steroidal anti-inflammatories (NSAID); Z79.899 Other long term (current) drug therapy

== ENCOUNTER 2023-04-15 22:51 | Emergency (ER) | payer MEDICAID ==
[~2023-04-15] VITALS: Ht 180.3 cm; Wt 77.3 kg
[~2023-04-15 22:51] MED LIST changes: +BACDST PO; +MUPI2OIN2 NAS
[2023-04-15 22:54] VITALS: BP 136/76; PULSE 80; RESP 16; O2SAT 97
== END 2023-04-16 02:32 | disposition left against medical advice (07) ==
LOC: ER 22:51 → EDBD 22:51 → ER 04-16 02:32
DX: R51.9 Headache, unspecified (principal); Z53.21 Procedure and treatment not carried out due to patient leaving prior to being seen by health care provider

== ENCOUNTER 2023-05-09 05:35 | Emergency (ER) | payer MEDICAID ==
[~2023-05-09] VITALS: Ht 180.3 cm; Wt 71.3 kg
[~2023-05-09 05:35] MED LIST changes: +FLUT1SUS NAS
[2023-05-09 07:43] VITALS: BP 113/69; PULSE 98; RESP 16; TEMP 98.1; O2SAT 97
[2023-05-09] MEDS ORDERED: KETOROLAC TROMETH 60MG/2ML VIAL IM ONE (07:45)
== END 2023-05-09 08:15 | disposition home or self-care (01) ==
LOC: ER 05:35
DX: G89.29 Other chronic pain (principal); M54.50 Low back pain, unspecified; F17.210 Nicotine dependence, cigarettes, uncomplicated; Z59.00 Homelessness unspecified
CPT/HCPCS: 96372; 99283; J1885

== ENCOUNTER 2023-05-16 00:18 | Emergency (ER) | payer MEDICAID ==
[~2023-05-16] VITALS: Ht 180.3 cm; Wt 79.0 kg
[2023-05-16] MEDS ORDERED: IBUPROFEN 600 MG TAB PO ONE (01:45)
[2023-05-16] MEDS ORDERED: diphenhdrAMINE HCL 25 MG CAP PO ONE (01:45)
[2023-05-16] MEDS ORDERED: DexAMETHasone 4 MG TAB PO ONE (01:45)
[2023-05-16] MEDS ORDERED: AMOX500C2 PO (01:46)
[2023-05-16] MEDS ORDERED: IBUP1TAB5 PO (01:46)
[2023-05-16] MEDS ORDERED: FLUT1SPR5 (01:46)
[2023-05-16] MEDS ORDERED: DIPH25CA66 PO (01:46)
[2023-05-16 02:13] VITALS: BP 117/80; PULSE 94; RESP 16; TEMP 98.2; O2SAT 96
== END 2023-05-16 03:18 | disposition home or self-care (01) ==
LOC: ER 00:20
DX: J32.0 Chronic maxillary sinusitis (principal); L29.9 Pruritus, unspecified; R51.9 Headache, unspecified; F17.210 Nicotine dependence, cigarettes, uncomplicated; Z98.890 Other specified postprocedural states
CPT/HCPCS: 99284; J8540

== ENCOUNTER 2023-05-18 03:19 | Emergency (ER) | payer MEDICAID ==
[~2023-05-18] VITALS: Ht 180.3 cm; Wt 50.0 kg
[~2023-05-18 03:19] MED LIST changes: +AMOX500C2 PO; +DIPH25CA66 PO; +FLUT1SPR5
[2023-05-18 03:28] VITALS: BP 120/72; PULSE 77; RESP 16; TEMP 97.3; O2SAT 97
[2023-05-18] MEDS ORDERED: IBUP-1453 PO (05:09)
[2023-05-18] MEDS ORDERED: CYCL-611 PO (05:09)
[2023-05-18] MEDS ORDERED: IBUPROFEN 800 MG TAB PO ONE (05:15)
[2023-05-19] MEDS ORDERED: ZOFR4T PO (06:51)
== END 2023-05-18 06:20 | disposition home or self-care (01) ==
LOC: ER 03:19
DX: G89.29 Other chronic pain (principal); M54.50 Low back pain, unspecified; M62.830 Muscle spasm of back; F17.210 Nicotine dependence, cigarettes, uncomplicated; Z59.00 Homelessness unspecified

== ENCOUNTER 2023-05-19 06:19 | Emergency (ER) | payer MEDICAID ==
[~2023-05-19] VITALS: Ht 180.3 cm; Wt 77.3 kg
[~2023-05-19 06:19] MED LIST changes: +CYCL-611 PO; +IBUP-1453 PO
[2023-05-19 06:25] VITALS: BP 112/76; PULSE 83; RESP 17; TEMP 97.9
[2023-05-19] MEDS ORDERED: HYDROcodone-ACET 5/325MG TAB PO ONE (06:45)
[2023-05-19] MEDS ORDERED: ONDANSETRON ODT 4 MG TAB PO ONE (06:45)
[2023-05-19] MEDS ORDERED: ZOFR4T PO (06:51)
[2023-05-19 07:06] VITALS: O2SAT 97
== END 2023-05-19 06:44 | disposition home or self-care (01) ==
LOC: ER 06:19
DX: M54.59 Other low back pain (principal); G89.29 Other chronic pain; M62.830 Muscle spasm of back; F17.210 Nicotine dependence, cigarettes, uncomplicated; Z79.1 Long term (current) use of non-steroidal anti-inflammatories (NSAID); Z90.89 Acquired absence of other organs; Z79.899 Other long term (current) drug therapy
CPT/HCPCS: 99283; Q0162

== ENCOUNTER 2023-05-21 06:21 | Emergency (ER) | payer MEDICAID ==
[~2023-05-21] VITALS: Ht 180.3 cm; Wt 71.6 kg
[~2023-05-21 06:21] MED LIST changes: +ZOFR4T PO
[2023-05-21 08:01] VITALS: BP 109/65; PULSE 85; RESP 12; TEMP 98; O2SAT 98
[2023-05-21] MEDS ORDERED: KETOROLAC TROMETH 60MG/2ML VIAL IM ONE (08:15)
== END 2023-05-21 08:51 | disposition home or self-care (01) ==
LOC: ER 06:21
DX: G89.29 Other chronic pain (principal); M54.59 Other low back pain; F17.210 Nicotine dependence, cigarettes, uncomplicated; Z90.89 Acquired absence of other organs; Z79.1 Long term (current) use of non-steroidal anti-inflammatories (NSAID); Z79.899 Other long term (current) drug therapy
CPT/HCPCS: 96372; 99283; J1885

== ENCOUNTER 2023-05-26 05:43 | Emergency (ER) | payer MEDICAID ==
[~2023-05-26] VITALS: Ht 180.3 cm; Wt 77.3 kg
[2023-05-26 06:02] VITALS: BP 111/83; PULSE 83; RESP 18; TEMP 97.7
[2023-05-26] MEDS ORDERED: HYDROcodone-ACET 5/325MG TAB PO ONE (06:45)
[2023-05-26 07:20] VITALS: O2SAT 98
== END 2023-05-26 07:45 | disposition home or self-care (01) ==
LOC: ER 05:43
DX: G89.29 Other chronic pain (principal); M54.50 Low back pain, unspecified; F17.210 Nicotine dependence, cigarettes, uncomplicated; Z90.89 Acquired absence of other organs; Z59.00 Homelessness unspecified; Z79.1 Long term (current) use of non-steroidal anti-inflammatories (NSAID); Z79.2 Long term (current) use of antibiotics; Z79.899 Other long term (current) drug therapy

== ENCOUNTER 2023-06-01 04:19 | Emergency (ER) | payer MEDICAID ==
[~2023-06-01] VITALS: Ht 182.9 cm; Wt 72.7 kg
[2023-06-01 04:42] VITALS: BP 102/63; PULSE 92; RESP 18; TEMP 98.1; O2SAT 97
[2023-06-01] MEDS ORDERED: KETOROLAC TROMETH 60MG/2ML VIAL IM ONE (05:15)
[2023-06-01] MEDS ORDERED: HYDROcodone-ACET 5/325MG TAB PO ONE (05:15)
== END 2023-06-01 05:48 | disposition home or self-care (01) ==
LOC: ER 04:19
DX: G89.29 Other chronic pain (principal); M54.59 Other low back pain; M54.16 Radiculopathy, lumbar region; F17.210 Nicotine dependence, cigarettes, uncomplicated; Z98.890 Other specified postprocedural states; Z79.1 Long term (current) use of non-steroidal anti-inflammatories (NSAID); Z79.899 Other long term (current) drug therapy
CPT/HCPCS: 96372; 99283; J1885

== ENCOUNTER 2023-06-13 19:15 | Emergency (ER) | payer MEDICAID ==
[~2023-06-13] VITALS: Ht 180.3 cm; Wt 76.0 kg
[2023-06-13] MEDS ORDERED: CYCL-611 PO (23:41)
[2023-06-13] MEDS ORDERED: IBUP1TAB5 PO (23:41)
[2023-06-14 00:41] VITALS: BP 113/71; PULSE 83; RESP 18; TEMP 98.2; O2SAT 99
== END 2023-06-13 23:42 | disposition home or self-care (01) ==
LOC: ER 19:15
DX: S33.5XXA Sprain of ligaments of lumbar spine, initial encounter (principal); F17.210 Nicotine dependence, cigarettes, uncomplicated; Z90.89 Acquired absence of other organs; Z59.00 Homelessness unspecified; Z79.1 Long term (current) use of non-steroidal anti-inflammatories (NSAID); Z79.2 Long term (current) use of antibiotics; Z79.899 Other long term (current) drug therapy; X58.XXXA Exposure to other specified factors, initial encounter; Y93.89 Activity, other specified; Y92.89 Other specified places as the place of occurrence of the external cause; Y99.8 Other external cause status
CPT/HCPCS: 72131

== ENCOUNTER 2023-07-04 00:07 | Emergency (ER) | payer MEDICAID ==
[~2023-07-04] VITALS: Ht 180.3 cm; Wt 76.5 kg
[2023-07-04 00:23] VITALS: BP 126/68; PULSE 89; RESP 16; TEMP 97.9; O2SAT 99
[2023-07-04] MEDS ORDERED: GENT0.3S10 EACHEYE (01:24)
[2023-07-04] MEDS ORDERED: ERYTHROMY OPTH OINT 5mg/gm 1gm or 3.5gm tube OP ONE (01:30)
== END 2023-07-04 02:10 | disposition home or self-care (01) ==
LOC: ER 00:07
DX: H10.9 Unspecified conjunctivitis (principal); F17.210 Nicotine dependence, cigarettes, uncomplicated; Z90.89 Acquired absence of other organs; Z59.00 Homelessness unspecified; Z79.1 Long term (current) use of non-steroidal anti-inflammatories (NSAID); Z79.2 Long term (current) use of antibiotics; Z79.899 Other long term (current) drug therapy

== ENCOUNTER 2023-07-06 23:31 | Emergency (ER) | payer MEDICAID ==
[~2023-07-06] VITALS: Ht 175.3 cm; Wt 76.1 kg
[~2023-07-06 23:31] MED LIST changes: +GENT0.3S10 EACHEYE
[2023-07-07 01:41] VITALS: BP 105/74; PULSE 87; RESP 17; TEMP 98.2; O2SAT 97
[2023-07-07] MEDS ORDERED: ALBUAER3 IN (02:02)
[2023-07-07] MEDS ORDERED: BENZ200C64 PO (02:02)
== END 2023-07-07 02:14 | disposition home or self-care (01) ==
LOC: ER 23:31
DX: J06.9 Acute upper respiratory infection, unspecified (principal); F17.210 Nicotine dependence, cigarettes, uncomplicated; Z59.00 Homelessness unspecified
CPT/HCPCS: 71045

== ENCOUNTER 2023-07-09 07:17 | Emergency (ER) | payer MEDICAID ==
[~2023-07-09] VITALS: Ht 172.7 cm; Wt 77.2 kg
[~2023-07-09 07:17] MED LIST changes: +ALBUAER3 IN; +BENZ200C64 PO
[2023-07-09 07:55] VITALS: BP 125/79; PULSE 82; RESP 18; TEMP 97.4; O2SAT 100
[2023-07-09] MEDS ORDERED: METH-1181 PO (08:13)
[2023-07-09] MEDS ORDERED: NABU-72 PO (08:13)
[2023-07-09] MEDS ORDERED: KETOROLAC TROMETH 30 MG/ML 1ML VIAL IM ONE (08:15)
== END 2023-07-09 08:52 | disposition home or self-care (01) ==
LOC: ER 07:17
DX: G89.29 Other chronic pain (principal); M54.50 Low back pain, unspecified; F17.210 Nicotine dependence, cigarettes, uncomplicated; Z90.89 Acquired absence of other organs; Z59.00 Homelessness unspecified; Z79.1 Long term (current) use of non-steroidal anti-inflammatories (NSAID); Z79.2 Long term (current) use of antibiotics; Z79.899 Other long term (current) drug therapy
CPT/HCPCS: 72100; 96372; 99283; J1885

== ENCOUNTER 2023-07-12 04:06 | Emergency (ER) | payer MEDICAID ==
[~2023-07-12] VITALS: Ht 180.3 cm; Wt 74.9 kg
[~2023-07-12 04:06] MED LIST changes: +NABU-72 PO
[2023-07-12] MEDS ORDERED: DICL50TA2 PO (08:47)
[2023-07-12] MEDS ORDERED: OMEP20TA PO (08:47)
[2023-07-12] MEDS ORDERED: CYCL-839 PO (08:47)
[2023-07-12 08:58] VITALS: BP 120/72; PULSE 83; RESP 18; O2SAT 99
== END 2023-07-12 08:59 | disposition home or self-care (01) ==
LOC: ER 04:06
DX: S01.01XA Laceration without foreign body of scalp, initial encounter (principal); G89.29 Other chronic pain; M54.50 Low back pain, unspecified; F17.210 Nicotine dependence, cigarettes, uncomplicated; F12.10 Cannabis abuse, uncomplicated; Z59.00 Homelessness unspecified; W18.39XA Other fall on same level, initial encounter; Y93.89 Activity, other specified; Y92.238 Other place in hospital as the place of occurrence of the external cause; Y99.8 Other external cause status
CPT/HCPCS: 70450

== ENCOUNTER 2023-07-19 01:22 | Emergency (ER) | payer MEDICAID ==
[~2023-07-19] VITALS: Ht 180.3 cm; Wt 74.3 kg
[~2023-07-19 01:22] MED LIST changes: +DICL50TA2 PO; +OMEP20TA PO
[2023-07-19 01:45] VITALS: BP 96/70; PULSE 104; RESP 18; TEMP 97.5; O2SAT 98
[2023-07-19] MEDS ORDERED: MUPI2OIN2 EX (02:06)
== END 2023-07-19 02:43 | disposition home or self-care (01) ==
LOC: ER 01:22
DX: S01.81XD Laceration without foreign body of other part of head, subsequent encounter (principal); F17.210 Nicotine dependence, cigarettes, uncomplicated; F12.10 Cannabis abuse, uncomplicated; Z59.00 Homelessness unspecified; X58.XXXD Exposure to other specified factors, subsequent encounter

== ENCOUNTER 2023-07-27 21:43 | Emergency (ER) | payer MEDICAID ==
[~2023-07-27] VITALS: Ht 180.3 cm; Wt 73.6 kg
[~2023-07-27 21:43] MED LIST changes: +MUPI2OIN2 EX
[2023-07-27] MEDS ORDERED: IBUPROFEN 800 MG TAB PO ONE (23:15)
[2023-07-27 23:17] VITALS: BP 105/67; PULSE 116; RESP 14; TEMP 98.3; O2SAT 97
== END 2023-07-28 00:26 | disposition home or self-care (01) ==
LOC: ER 21:43
DX: M79.18 Myalgia, other site (principal); F17.210 Nicotine dependence, cigarettes, uncomplicated; F12.10 Cannabis abuse, uncomplicated; Z59.00 Homelessness unspecified

== ENCOUNTER 2023-08-11 22:48 | Emergency (ER) | payer MEDICAID ==
[~2023-08-11] VITALS: Ht 177.8 cm; Wt 74.0 kg
[2023-08-12] MEDS ORDERED: KETOROLAC TROMETH 60MG/2ML VIAL IM ONE (04:15)
[2023-08-12 06:25] VITALS: BP 131/88; PULSE 78; RESP 18; TEMP 98.4; O2SAT 99
== END 2023-08-12 04:44 | disposition home or self-care (01) ==
LOC: ER 22:48
DX: G89.29 Other chronic pain (principal); M54.59 Other low back pain; F17.210 Nicotine dependence, cigarettes, uncomplicated; F15.90 Other stimulant use, unspecified, uncomplicated; Z98.890 Other specified postprocedural states; Z79.899 Other long term (current) drug therapy
CPT/HCPCS: 96372; 99283; J1885

== ENCOUNTER 2023-10-27 21:06 | Emergency (ER) | payer MEDICAID ==
[~2023-10-27] VITALS: Ht 180.3 cm; Wt 79.1 kg
[~2023-10-27 21:06] MED LIST changes: +AZIT-185 PO; -AZIT-81 PO
[2023-10-28] MEDS ORDERED: PRED20TA2 PO (00:14)
[2023-10-28] MEDS ORDERED: CYCL-839 PO (00:14)
[2023-10-28] MEDS: DexAMETHasone SOD PHOS 10MG/1ML VIAL INJ IM ONE (01:29)
[2023-10-28] MEDS: KETOROLAC TROMETH 30 MG/ML 1ML VIAL IM ONE (01:29)
[2023-10-28 01:30] VITALS: BP 110/74; PULSE 100; RESP 20; TEMP 98; O2SAT 98
== END 2023-10-28 01:35 | disposition home or self-care (01) ==
LOC: ER 21:06
DX: M54.16 Radiculopathy, lumbar region (principal); F12.10 Cannabis abuse, uncomplicated; F17.210 Nicotine dependence, cigarettes, uncomplicated; Z59.00 Homelessness unspecified
CPT/HCPCS: 96372; 99284; J1100; J1885

== ENCOUNTER 2023-11-11 03:47 | Emergency (ER) | payer MEDICAID ==
[~2023-11-11] VITALS: Ht 180.3 cm; Wt 80.0 kg
[~2023-11-11 03:47] MED LIST changes: +PRED20TA2 PO
[2023-11-11] MEDS ORDERED: IBUP1TAB5 PO (04:27)
[2023-11-11] MEDS ORDERED: CYCL-839 PO (04:27)
[2023-11-11] MEDS ORDERED: HYDROcodone-ACET 5/325MG TAB PO ONE (04:30)
[2023-11-11] MEDS ORDERED: DexAMETHasone SOD PHOS 10MG/1ML VIAL INJ IM ONE (04:30)
[2023-11-11] MEDS ORDERED: KETOROLAC TROMETH 60MG/2ML VIAL IM ONE (04:30)
[2023-11-11] MEDS: DexAMETHasone SOD PHOS 10MG/1ML VIAL INJ IM ONE (04:37)
[2023-11-11] MEDS: HYDROcodone-ACET 5/325MG TAB PO ONE (04:38)
[2023-11-11] MEDS: KETOROLAC TROMETH 60MG/2ML VIAL IM ONE (04:38)
[2023-11-11 04:49] VITALS: BP 110/69; PULSE 73; RESP 20; TEMP 98.1; O2SAT 99
== END 2023-11-11 04:48 | disposition home or self-care (01) ==
LOC: ER 03:47
DX: G89.29 Other chronic pain (principal); M54.50 Low back pain, unspecified; M54.6 Pain in thoracic spine; M62.830 Muscle spasm of back; F17.210 Nicotine dependence, cigarettes, uncomplicated; F12.10 Cannabis abuse, uncomplicated; Z59.00 Homelessness unspecified
CPT/HCPCS: 96372; 99284; J1100; J1885

== ENCOUNTER 2023-11-18 00:28 | Emergency (ER) | payer MEDICAID ==
[~2023-11-18] VITALS: Ht 180.3 cm; Wt 79.5 kg
[2023-11-18 02:06] VITALS: BP 114/77; PULSE 106; RESP 16; TEMP 97.6; O2SAT 99
[2023-11-18] MEDS: KETOROLAC TROMETH 60MG/2ML VIAL IM ONE (02:52)
== END 2023-11-18 02:52 | disposition home or self-care (01) ==
LOC: ER 00:28
DX: S39.012A Strain of muscle, fascia and tendon of lower back, initial encounter (principal); G89.29 Other chronic pain; F17.210 Nicotine dependence, cigarettes, uncomplicated; Z90.89 Acquired absence of other organs; Z59.00 Homelessness unspecified; Z79.1 Long term (current) use of non-steroidal anti-inflammatories (NSAID); Z79.2 Long term (current) use of antibiotics; Z79.899 Other long term (current) drug therapy; X58.XXXA Exposure to other specified factors, initial encounter; Y93.67 Activity, basketball; Y92.89 Other specified places as the place of occurrence of the external cause; Y99.8 Other external cause status
CPT/HCPCS: 96372; 99283; J1885

== ENCOUNTER 2023-12-10 06:01 | Emergency (ER) | payer MEDICAID | END 2023-12-10 08:34 | disposition left against medical advice (07) | LOC: ER 06:01 | DX: M54.9 Dorsalgia, unspecified (principal); Z53.21 Procedure and treatment not carried out due to patient leaving prior to being seen by health care provider ==

== ENCOUNTER 2023-12-10 06:14 | Emergency (ER) | payer MEDICAID ==
[~2023-12-10] VITALS: Ht 180.3 cm; Wt 72.0 kg
[2023-12-10 06:15] VITALS: BP 100/68; PULSE 89; RESP 18; O2SAT 99
== END 2023-12-10 08:36 | disposition left against medical advice (07) ==
LOC: ER 06:14
DX: M54.9 Dorsalgia, unspecified (principal); F17.210 Nicotine dependence, cigarettes, uncomplicated; F12.10 Cannabis abuse, uncomplicated; Z79.899 Other long term (current) drug therapy; Z59.00 Homelessness unspecified; Z79.1 Long term (current) use of non-steroidal anti-inflammatories (NSAID); Z79.2 Long term (current) use of antibiotics; Z53.21 Procedure and treatment not carried out due to patient leaving prior to being seen by health care provider

== ENCOUNTER 2023-12-15 21:42 | Emergency (ER) | payer MEDICAID ==
[~2023-12-15] VITALS: Ht 180.3 cm; Wt 82.0 kg
[2023-12-16 05:08] VITALS: BP 121/81; PULSE 95; RESP 20; TEMP 98.1; O2SAT 98
[2023-12-16] MEDS ORDERED: CYCL-837 PO (05:24)
[2023-12-16] MEDS: KETOROLAC TROMETH 60MG/2ML VIAL IM ONE (05:39)
== END 2023-12-16 05:44 | disposition home or self-care (01) ==
LOC: ER 21:42
DX: G89.29 Other chronic pain (principal); M54.59 Other low back pain; F17.210 Nicotine dependence, cigarettes, uncomplicated; F15.90 Other stimulant use, unspecified, uncomplicated; Z59.00 Homelessness unspecified; Z98.890 Other specified postprocedural states; Z79.899 Other long term (current) drug therapy
CPT/HCPCS: 96372; 99283; J1885

== ENCOUNTER 2024-01-18 20:53 | Emergency (ER) | payer MEDICAID ==
[~2024-01-18] VITALS: Ht 180.3 cm; Wt 75.2 kg
[~2024-01-18 20:53] MED LIST changes: +CYCL-838 PO
[2024-01-19] MEDS ORDERED: TAMS0.4C36 PO (02:12)
[2024-01-19] MEDS: KETOROLAC TROMETH 30 MG/ML 1ML VIAL IM ONE (02:35)
[2024-01-19 02:41] VITALS: BP 109/76; PULSE 130; RESP 18; TEMP 98.2; O2SAT 100
== END 2024-01-19 02:40 | disposition home or self-care (01) ==
LOC: ER 20:53
DX: G89.29 Other chronic pain (principal); M54.59 Other low back pain; F17.210 Nicotine dependence, cigarettes, uncomplicated; F15.90 Other stimulant use, unspecified, uncomplicated; Z98.890 Other specified postprocedural states; Z59.00 Homelessness unspecified; Z79.899 Other long term (current) drug therapy
CPT/HCPCS: 96372; 99283; J1885

== ENCOUNTER 2024-01-27 01:05 | Emergency (ER) | payer MEDICAID ==
[~2024-01-27] VITALS: Ht 180.3 cm; Wt 77.3 kg
[~2024-01-27 01:05] MED LIST changes: +TAMS0.4C36 PO
[2024-01-27 01:15] VITALS: BP 144/90; PULSE 95; RESP 19; TEMP 98
[2024-01-27 03:00] VITALS: O2SAT 99
[2024-01-27] MEDS: KETOROLAC TROMETH 60MG/2ML VIAL IM ONE (03:20)
== END 2024-01-27 01:24 | disposition left against medical advice (07) ==
LOC: ER 01:05
DX: M54.59 Other low back pain (principal); G89.29 Other chronic pain; F17.210 Nicotine dependence, cigarettes, uncomplicated; F15.90 Other stimulant use, unspecified, uncomplicated; Z98.890 Other specified postprocedural states; Z59.00 Homelessness unspecified; Z79.899 Other long term (current) drug therapy

== ENCOUNTER 2024-03-26 10:35 | Emergency (ER) | payer MEDICAID ==
[~2024-03-26] VITALS: Ht 180.3 cm; Wt 78.5 kg
[~2024-03-26 10:35] MED LIST changes: -TAMS0.4C36 PO; +TAMS0.4C39 PO
[2024-03-26 11:39] VITALS: BP 98/68; PULSE 79; RESP 18; TEMP 97.5; O2SAT 96
[2024-03-26] MEDS: cefTRIAXone SOD 1,000 MG VL IM ONE (11:47)
[2024-03-26] MEDS: IBUPROFEN 800 MG TAB PO ONE (11:47)
[2024-03-26] MEDS ORDERED: CEPH500C PO (12:04)
== END 2024-03-26 12:24 | disposition home or self-care (01) ==
LOC: ER 10:35
DX: S70.362A Insect bite (nonvenomous), left thigh, initial encounter (principal); F17.210 Nicotine dependence, cigarettes, uncomplicated; F12.10 Cannabis abuse, uncomplicated; Z59.00 Homelessness unspecified; W57.XXXA Bitten or stung by nonvenomous insect and other nonvenomous arthropods, initial encounter; Y93.89 Activity, other specified; Y92.89 Other specified places as the place of occurrence of the external cause; Y99.8 Other external cause status
CPT/HCPCS: 96372; 99283; J0696